=== PATIENT | female | born 1995 | race Caucasian/White ===

== ENCOUNTER 2021-01-26 23:56 | Emergency (ER) | payer MEDICAID, SELFPAY ==
[2021-01-26 23:58] VITALS: BP 142/84; PULSE 85; RESP 16; TEMP 36.5; O2SAT 99; BMI 34.1
--- NOTE | 2021-01-27 00:05 | ED.VISSUMM ---
- ER Visit Summary Date of Service: 01/27/21 Chief Complaint: Nausea, tired History of Present Illness: The patient is a 25 F who states she has nausea and feels tired. She states that she drank a weight loss drink earlier today and since then she has not felt well. She has had nausea without vomiting. She denies any abdominal pain. She noticed tonight that both of her eyes were puffy. She denies any pain or vision changes. She has had a decreased appetite and she feels tired. She denies any fevers or any other coronavirus-like symptoms. Denies any chance of . Denies any urinary symptoms. Physical Examination: Vital signs reviewed. HEENT exam unremarkable. Heart is regular rate and rhythm without murmurs. Lungs are clear to auscultation. Abdomen is soft and nontender. Extremities reveal no edema. Skin exam normal. Neurologic exam normal. Test Results: White blood cell count is 15.5, potassium is 3.4, creatinine 1.19. is negative. Emergency Department Course and Treatment: Patient was given saline and Zofran. Upon reevaluation she is symptomatically improved. Her symptoms are likely due to this diet drink that she ingested earlier. I recommended that she not drink this anymore. She will be given Phenergan to take for nausea at home. She will follow-up with her PCP. Treatment Plan: [] Disposition: Discharge Impression: Nausea This note was generated with [employer] dictation software. It may contain incorrect words, spelling, and punctuation that were not noted in review of the chart prior to signing ED Disposition - Plan for ED Patient: Disposition: Home or Assisted Living Instructions: ED Vomiting (Adult) Prescriptions: proMETHazine tablet [Phenergan] 25 mg PO Q6H PRN PRN #10 tab PRN Reason: Nausea Prescription Printed Referrals: Care Physician,No Primary [Primary Care Provider] -
[2021-01-27 00:16] VITALS: BP 142/84; PULSE 85; RESP 16; TEMP 36.5; O2SAT 99; BMI 34.1
[2021-01-27 00:23] LABS: Absolute Lymphocyte Count 5.56 X10^3/uL (0.83-4.51); Absolute Neutrophil Count 8.9 X10^3/uL (2.0-7.7); Basophil# 0.08 X10^3/uL; Basophil% 0.5 % (0-1); Eosinophil# 0.11 X10^3/uL; Eosinophils% 0.7 % (0-5); Hematocrit 43.5 % (37-47); Hemoglobin 13.9 g/dL (12.0-15.0); Lymphocyte # 5.56 X10^3/ul (0.83-4.51); Lymphocyte % 35.8 % (19-41); Mean Corpuscular Hgb 27.5 pg (27.0-32.0); Mean Corpuscular Volume 86.1 fL (81-99); Mean Platelet Vol. 9.4 fl (6.2-12.0); Monocyte# 0.85 X10^3/uL; Monocyte% 5.5 % (0-10); NRBC Flagged by Analyzer 0 % (0-5); Neutrophil # 8.87 X10^3/uL (2.7-7.7); Neutrophil % 57.2 % (47-70); POSITIVE DIFFERENTIAL YES; POSITIVE MORPHOLOGY YES; Platelet Count 346 K/mm3 (150-450); RBC Distribution Width CV 12.3 % (11.6-14.6); RBC Distribution Width SD 38.9 fl (35.1-43.9); Red Blood Count 5.05 M/mm3 (4.2-5.4); White Blood Count 15.5 K/mm3 (4.4-11.0)
[2021-01-27 00:28] LABS: Internal QC Validated? YES +Cl - CLEAR BKGD; Pregnancy, Urine Negative Negative
[2021-01-27] MEDS: Ondansetron 4 MG/2 ML Vial IV (00:36)
[2021-01-27] MEDS: 0.9% Normal Saline 1,000 ML 999 ML IV (00:36)
[2021-01-27 00:41] LABS: Differential Indicated SCAN CRITERIA MET
[2021-01-27 00:43] LABS: Anion Gap 5 (5-15); BUN 14 mg/dL (7-18); BUN/Creat Ratio 11.8 RATIO (10-20); Calcium,Total 9.9 mg/dL (8.5-10.1); Chloride 103 mmol/L (98-107); Creatinine, Serum 1.19 mg/dL (0.55-1.02); EST Glomerular Filtration Rate 58 mL/min (>60); Est Glom Filt Rate - Afr Amer 71 mL/min (>60); Estimated Creatinine Clearance 59.78 ml/min; Glucose 79 mg/dL (74-106); Potassium 3.4 mmol/L (3.5-5.1); Sodium Level 137 mmol/L (136-145)
== END 2021-01-27 01:33 | disposition home or self-care (01) ==
PROVIDERS: Emergency Provider Emergency Medicine
DX: R11.0 Nausea (principal); Z72.0 Tobacco use
CPT/HCPCS: 80048; 81025; 85025; 96361; 96374; 99282; J7030; A4216; J2405

== ENCOUNTER 2022-03-29 11:31 | Emergency (ER) | payer MEDICAID, SELFPAY ==
[2022-03-29 11:32] VITALS: BP 145/104; PULSE 56; RESP 16; TEMP 36.2; O2SAT 98; BMI 29.3
[2022-03-29] MEDS: Metoclopramide 10 MG/2 ML Vial IV (12:02)
[2022-03-29] MEDS: 0.9% Normal Saline 1,000 ML 1000 ML IV (12:02)
[2022-03-29] MEDS: Capsaicin 0.025% 1 APPLIC Tube TOPICAL (12:24)
[2022-03-29 12:38] LABS: Anion Gap 6 (5-15); BUN 22 mg/dL (7-18); BUN/Creat Ratio 21.6 RATIO (10-20); Calcium,Total 9.3 mg/dL (8.5-10.1); Chloride 110 mmol/L (98-107); Creatinine, Serum 1.02 mg/dL (0.55-1.02); EST Glomerular Filtration Rate 69 mL/min (>60); Est Glom Filt Rate - Afr Amer 84 mL/min (>60); Estimated Creatinine Clearance 69.14 ml/min; Glucose 108 mg/dL (74-106); Potassium 3.2 mmol/L (3.5-5.1); Sodium Level 140 mmol/L (136-145)
--- NOTE | 2022-03-29 12:48 | EX.ED.DYSGE1 ---
HPI History of Present Illness Chief Complaint: Nausea/Vomiting Detail of Chief Complaint: I feel terrible Informant: patient Onset/Context/Timing Onset: Days Context: Sudden Onset Timing: Continuous and Intermittent (Intermittent nausea and vomiting. Worse in the morning) Quality: Sense of unwellness, nausea and vomiting and mild orthostatic symptoms Location: Generalized and GI Current Severity: Moderate Maximum Severity: Severe Worsened by: Nothing per patient Relieved by: Nothing per patient Associated Symptoms Associated Symptoms: No fever, no neurologic or HEENT symptoms Narrative Narrative: Patient is a 26-year-old woman who states she was seen at [facility] on Friday. She states urine test was negative. Urine was positive for ketones. They placed on nitrofurantoin because there was concern for infection because she had ketones in her urine. She does admit to smoking daily. She also admits to smoking marijuana daily. She states she was told she would get better if she stop smoking for 2 days. Patient reports darker urine this morning and decreased urine output. She does report dry mouth and thirst. She does endorse orthostatic symptoms. She denies headache, visual, ocular auditory symptoms. She denies upper respiratory infectious symptoms. Prior similar symptoms: Yes Recent Illness/Hospitalization: Yes PFSH PFSH Medical History no medical history no medical history Home Medications promethazine 25 mg tablet 25 mg PO Q6H PRN PRN Nausea #10 TABLETS 01/27/21 [Rx Last Taken Unknown] Allergy/AdvReac Type Severity Reaction Status Date / Time ARITHROMYCIN Allergy Intermediate Hives Uncoded 03/29/22 11:34 Surgical History no surgical history no surgical history Social History (Updated 03/29/22 @ 12:[address] Remington Calhoun MD) household members: friend(s) Smoking Status: Current every day smoker tobacco type: cigarettes alcohol intake: current substance use type: marijuana ROS ROS ED Constitutional Constitutional ED: Denies chills, fever(s), subjective, sweats or weight loss Eyes Eyes: Denies blurry vision, change in vision or diplopia ENT ENT ED: Denies ear pain, rhinorrhea or sore throat Cardiovascular Cardiovascular: Denies chest pain, palpitations or racing heartbeat Respiratory/Chest Respiratory/Chest: Denies cough, dyspnea or dyspnea on exertion Gastrointestinal Gastrointestinal: Reports abdominal pain, nausea and vomiting; Denies constipation, diarrhea or melena Genitourinary Genitourinary ED: Denies dysuria, hematuria or urinary frequency Musculoskeletal Musculoskeletal: Denies arthralgias, back pain, myalgias or neck pain Integumentary Denies abscess, Abrasions or rash Neurologic Neurologic: Denies headache(s), paresthesias or weakness Endocrine Endocrinology: Denies cold intolerance, heat intolerance or polydipsia Allergic/Immunologic Allergic/Immunologic ED: Denies mouth swelling, tongue swelling or urticaria EXAM Physical Exam Narrative Exam Narrative: Patient does not look well. She is not toxic in appearance. Const Vital Signs: 03/29/22 11:32 03/29/22 13:11 Temperature 97.1 F L Temperature Source Temporal Pulse Rate 56 L 62 Respiratory Rate 16 18 Blood Pressure 145/104 H 130/72 H Blood Pressure Mean 117 91 Pulse Ox 98 97 Oxygen Delivery Method Room Air Room Air Positive well nourished and well developed General Appearance ED: well developed; Negative for cyanotic, diaphoretic, NAD or pallor HEENT Reports dry mucous membranes HEENT Narrative: Pertinent tissue. Uvula midline. No erythema or exudate of the posterior pharynx. Ears are normal. TMs are normal. Nares patent with no discharge. Mouth ED: Yes dry mucous membranes Mouth: dry mucous membranes Eyes PERRL and EOMs intact bilaterally General Eye ED: Negative for pale conjunctiva or scleral icterus Neck no lymphadenopathy, supple and no JVD Resp normal respiratory effort and clear to auscultation bilaterally Cardio regular rate, regular rhythm, S1 normal heart sound, S2 normal heart sound and no murmurs GI normal to inspection, nondistended, normoactive bowel sounds, non-tender, non-distended and no masses; Negative for hepatosplenomegaly Palpation: soft Back/Spine no CVA tenderness Thoracic Spine / Upper Back: Negative for thoracic spinal tenderness Lumbar Spine / Lower Back: Negative for lumbar spinal tenderness Extremity normal to inspection General Extremety ED: Negative for edema or tenderness General Extremity: Negative for edema Neuro oriented x3, CN's II-XII intact bilaterally and no sensory deficits noted Sensorium / Orientation: alert Motor Exam: strength 5/5 throughout Psych Psych Narrative: Affect flat mood depressed Skin General Skin Exam: Negative for jaundice or pallor Lesions: No lesion noted Rashes: No rashes noted Trauma: Negative for abrasion MDM MDM MDM Narrative Medical decision making narrative: Clinically patient looks dehydrated. She was informed since she is a daily marijuana user it may take up to 30 days for the hyperemesis due to cannabis to resolve. She was treated with A station ointment. She also received Reglan for nausea vomiting. Electrolytes were obtained to assess renal function, CO2 anion gap and electrolytes. Lab Data Attestation: I reviewed the patient's lab results. Lab results narrative: Patient has mild hypokalemia. Chloride is elevated. Labs: Laboratory Results - last 24 hr 03/29/22 11:48 Sodium 140 Potassium 3.2 L Chloride 110 H Carbon Dioxide 24.0 Anion Gap 6 BUN 22 H Creatinine 1.02 Estim Creat Clear Calc 69.14 Est GFR (MDRD) Af Amer 84 Est GFR (MDRD) Non-Af 69 BUN/Creatinine Ratio 21.6 H Glucose 108 H Calcium 9.3 Rhythm Strip Rhythm Strip: Sinus Rhythm Rate: 61 Ectopy: None Treatment and Re-Evaluation Narrative: Patient was reassessed at 10/08/2006. She has not vomited since she arrived. She her nausea has improved. She still feels nauseous. 25 mg of Benadryl and 2 mg of Haldol was ordered and will reassess in 30 to 60 minutes. Patient was reassessed at 1455. She reports resolution of her nausea and vomiting and feeling terrible . Patient was given the capsaicin ointment to go home with. She was informed that the marijuana will not be out of her system for approximately 30 days. Discharge Plan Triage Chief Complaint: Nausea/Vomiting ED Provider: Remington Calhoun Dx/Rx/DC Orders Clinical Impression: Cannabis hyperemesis syndrome concurrent with and due to cannabis abuse, Moderate dehydration, Acute hypokalemia Instructions: Cannabinoid Hyperemesis Syndrome, ED Hypokalemia, ED Marijuana Abuse Prescriptions: No Action promethazine 25 MG tablet 25 mg PO Q6H PRN PRN (Reason: Nausea) Qty: 10 0RF Primary Care Provider: Care Physician,No Primary Referrals: Care Physician,No Primary [Primary Care Provider] - Doctor,Your [STAFF PHYSICIAN] - As Needed Disposition Disposition: Home, Self Care
[2022-03-29 13:11] VITALS: BP 130/72; PULSE 62; RESP 18; O2SAT 97
[2022-03-29] MEDS: DiphenhydrAMINE 50 MG/ML Syringe 25 MG IV (13:19)
[2022-03-29] MEDS: Haloperidol Lactate 5 MG/ML Vial 2 MG IV (13:20)
--- NOTE | 2022-03-29 15:36 | CM.ED ---
SW Note Referral Source: Case Find Referral Reason: No Primary Care Physician (PCP) SW reviewed chart and noted that patient has no PCP. SW provided patient with list of [facility] and [facility] Physician List for reference. SW also provided patient with handout ?Where to go When?. No other issues or concerns voiced at this time. SW remains available for any additional needs. Plan: Provided patient with PCP information Erika GOMEZ
[2022-03-29 15:56] VITALS: BP 149/84; PULSE 60; RESP 18; O2SAT 98
== END 2022-03-29 16:01 | disposition home or self-care (01) ==
PROVIDERS: Emergency Provider Emergency Medicine; Visit Provider Emergency Medicine
DX: F12.188 Cannabis abuse with other cannabis-induced disorder (principal); R11.2 Nausea with vomiting, unspecified; R10.9 Unspecified abdominal pain; E86.0 Dehydration; E87.6 Hypokalemia; F17.210 Nicotine dependence, cigarettes, uncomplicated
CPT/HCPCS: 80048; 96361; 96374; 96375; 99283; J7030; A4216

== ENCOUNTER 2022-04-28 17:30 | Emergency (ER) | payer MEDICAID, SELFPAY ==
[2022-04-28 17:30] VITALS: BP 123/72; PULSE 73; RESP 15; TEMP 36.4; O2SAT 98; BMI 29.2
--- NOTE | 2022-04-28 17:46 | EDS_ITS ---
HPI HPI - Female History of Present Illness Chief Complaint: Complaint Detail of Chief Complaint: Dysuria and possible STD Informant: patient Narrative Narrative: Patient presents the emergency department concerned she might have an STD. Patient states that her partner was tested recently because he had some drainage from his penis and was started on antibiotics but the results of the STD check were unavailable yet. Patient denies vaginal discharge. She has had some vaginal bleeding and spotting and she is on Nexplanon. She does not think she is . Patient's had some mild dysuria and some mild pain in her back. She denies fevers. PFSH PFSH Medical History no medical history Home Medications NK 04/28/22 [History Last Taken Unknown] Allergy/AdvReac Type Severity Reaction Status Date / Time erythromycin base Allergy Hives Verified 04/28/22 17:34 Family History no significant family his Surgical History no surgical history Social History (Updated 03/29/22 @ 12:[address] Remington Calhoun MD) household members: friend(s) Smoking Status: Current every day smoker tobacco type: cigarettes alcohol intake: current substance use type: marijuana ROS ROS ED Review of Systems ROS Unobtainable: other Constitutional Constitutional ED: Reports lethargy; Denies chills, fever(s), sweats or weight loss Eyes Eyes: Denies blurry vision, change in vision or diplopia ENT ENT ED: Denies rhinorrhea or sore throat Cardiovascular Cardiovascular: Reports chest pain and racing heartbeat; Denies orthopnea Respiratory/Chest Respiratory/Chest: Reports dyspnea and dyspnea on exertion; Denies cough, orthopnea or sputum Gastrointestinal Gastrointestinal: Denies abdominal pain, diarrhea, nausea or vomiting Genitourinary Genitourinary ED: Reports dysuria and other Details: Vaginal bleeding ; Denies hematuria or urinary frequency Musculoskeletal Musculoskeletal: Denies arthralgias, back pain, myalgias or neck pain Integumentary Denies abscess, Abrasions or rash Neurologic Neurologic: Denies headache(s) or weakness Psychiatric Psychiatric: Denies anxiety, depression or suicidal thoughts Endocrine Endocrinology: Denies polydipsia, polyphagia or polyuria Hematologic/Lymphatic Hematologic/Lymphatic: Denies easy bleeding, easy bruising or lymphadenopathy Allergic/Immunologic Allergic/Immunologic ED: Denies mouth swelling, tongue swelling or urticaria EXAM Physical Exam Const Vital Signs: 04/28/22 17:30 Temperature 97.5 F L Temperature Source Temporal Pulse Rate 73 Respiratory Rate 15 Blood Pressure 123/72 H Blood Pressure Mean 89 Pulse Ox 98 Oxygen Delivery Method Room Air Positive well nourished and well developed General Appearance ED: well developed and NAD HEENT Reports TM's clear and moist mucous membranes normocephalic and atraumatic; Negative for trauma or tenderness Tympanic Membrane ED: Yes TM's clear Eyes PERRL and EOMs intact bilaterally General Eye ED: Negative for pale conjunctiva or scleral icterus Neck no lymphadenopathy, supple and no JVD General: Negative for tenderness Chest Wall inspection of chest normal and palpation of chest normal Chest: Negative for tenderness Resp normal respiratory effort and clear to auscultation bilaterally Effort and Inspection: Negative for respiratory distress or pain with movement Auscultation: Negative for rhonchi, wheezes or diminished lung sounds Cardio regular rate, regular rhythm, S1 normal heart sound, S2 normal heart sound and no murmurs Peripheral Pulses: pulses 2+ throughout GI normal to inspection, nondistended, normoactive bowel sounds, soft to palpation, non-tender, non-distended and no masses Back/Spine no CVA tenderness and no thoracic nor lumbar tenderness Extremity normal to inspection General Extremety ED: Negative for edema General Extremity: Negative for edema Neuro oriented x3, CN's II-XII intact bilaterally, no sensory deficits noted and gait normal Sensorium / Orientation: awake, alert, oriented to person, oriented to place and oriented to time Motor Exam: strength 5/5 throughout and strength abnormal Psych mental status grossly normal Skin no rashes or lesions noted and no wounds MDM MDM MDM Narrative Medical decision making narrative: Patient had urinalysis obtained and was unremarkable. hCG urine was also negative. Patient will be treated with Rocephin to 50 mg IM and Zithromax 1 g p.o. GC and Chlamydia test results are pending. Patient advised to follow-up with primary care physician in 3 to 5 days. Lab Data Attestation: I reviewed the patient's lab results. Labs: Laboratory Results - last 24 hr 04/28/22 17:30 Urine Color Yellow Urine Clarity Clear Urine pH 7.0 Ur Specific [place] 1.010 Urine Protein Negative Urine Glucose (UA) Normal Urine Ketones Negative Urine Occult Blood 25 H Urine Nitrite Negative Urine Bilirubin Negative Urine Urobilinogen Normal Ur Leukocyte Esterase Negative Urine RBC 0-5 SEEN Urine WBC 0-5 SEEN Ur Squamous Epith Cells 5-10 SEEN Urine Bacteria 1+ Urine Mucus RARE Urine Test Negative Discharge Plan Triage Chief Complaint: Complaint ED Provider: Becky Ann Dx/Rx/DC Orders Clinical Impression: Urethritis Instructions: ED Urethritis Infec Vs Inflam ... Prescriptions: No Action NK Primary Care Provider: Antony Trevino Referrals: Care Physician,No Primary [NON-STAFF] - 3-5 Days Disposition Disposition: Home, Self Care
[2022-04-28 17:52] LABS: Internal QC Validated? YES +Cl - CLEAR BKGD
[2022-04-28 17:53] LABS: Color, Urine Yellow (Yellow); Glucose, Dipstick Normal (Normal); Ketone-Dipstick Negative (Negative); Leukocyte Esterase-Dipstick Negative /ul (Negative); Nitrite-Dipstick Negative (Negative); Occult Blood-Urine 25 /ul (Negative); Protein-Dipstick Negative (Negative); Urine Bilirubin Dipstick Negative (Negative); Urine Clarity Clear (Clear); Urine Urobilinogen Normal (Normal)
[2022-04-28 17:57] LABS: Pregnancy, Urine Negative Negative
[2022-04-28 18:05] LABS: Bacteria 1+ /hpf (None Seen); Mucous, Urine RARE /hpf (<or=2+); Red Blood Cells-Urine 0-5 SEEN /hpf (0-5); Squamous Epithelial Cells - UA 5-10 SEEN /hpf (5-10); White Blood Cells 0-5 SEEN /hpf (0-5)
[2022-04-28 18:26] VITALS: RESP 16
[2022-04-28] MEDS: Azithromycin 250 MG Tablet 1000 MG PO (19:04)
[2022-04-28] MEDS: Ceftriaxone 500 MG Vial 250 MG IM (19:04)
[2022-04-28 20:23] LABS: Chlamydia Trachomatis by PCR Negative (Negative); Neisserai gonorrhoeae by PCR Negative (Negative); Probe Check PASS; Sample Adequacy Control PASS; Specimen Processing Control PASS
== END 2022-04-28 19:10 | disposition home or self-care (01) ==
PROVIDERS: Emergency Provider Emergency Medicine; PCP Family Medicine; Visit Provider Emergency Medicine
DX: N34.2 Other urethritis (principal); M54.9 Dorsalgia, unspecified; Z11.3 Encounter for screening for infections with a predominantly sexual mode of transmission; N93.9 Abnormal uterine and vaginal bleeding, unspecified; N92.0 Excessive and frequent menstruation with regular cycle; F17.210 Nicotine dependence, cigarettes, uncomplicated
CPT/HCPCS: 81001; 81025; 87491; 87591; 96372; 99282

== ENCOUNTER 2022-05-12 16:03 | Emergency (ER) | payer MEDICAID, SELFPAY ==
[2022-05-12 16:04] VITALS: BP 144/112; PULSE 47; RESP 18; TEMP 35.9; O2SAT 99; BMI 27.4
[2022-05-12 16:10] VITALS: BP 144/112; PULSE 47; RESP 18; TEMP 35.9; O2SAT 99
--- NOTE | 2022-05-12 16:17 | CT_ITS ---
STUDY: CT Abdomen And Pelvis W/ Contrast Injection 05/12/2022 6:11 PM REASON FOR EXAM: Female, 26 years old. ABDOMINAL PAIN abdominal pain TECHNIQUE: Transaxial images were obtained without oral contrast, and with IV 100mL Isovue-370 intravenous contrast. Individualized dose optimization techniques were used for this CT. COMPARISON: None. FINDINGS: The visualized lung bases are unremarkable. The visualized portions of the heart are within normal limits. There is periportal edema noted. Unremarkable gallbladder and extrahepatic biliary system. Unremarkable spleen. Unremarkable pancreas. Unremarkable bilateral adrenal glands. No acute findings of the right kidney. No acute findings of the left kidney. Unremarkable visualized stomach. Unremarkable small intestine. Unremarkable colon. There are surgical clips in the region of the appendix consistent with a prior appendectomy. There are no acute findings of the abdominal aorta. Unremarkable inferior vena cava. Subcentimeter mesenteric lymph nodes. Unremarkable urinary bladder. There are physiologic follicles of both ovaries. There is an umbilical hernia containing fat. Unremarkable osseous structures. CT/Abdomen/Pelvis W IV Cont ONLY IMPRESSION: (NOT LISTED IN ORDER OF SIGNIFICANCE) There are no acute findings. Other findings as above. Electronically Signed: Ilan Camacho MD at 18:23 EDT ,
--- NOTE | 2022-05-12 16:23 | ED.VIS.GI ---
HPI HPI - GI History of Present Illness Chief Complaint: Abd Pain Detail of Chief Complaint: Abdominal pain Informant: patient Narrative Narrative: Patient presents to the emergency department complaint of abdominal pain since this morning. Patient states she woke up nauseated and then started vomiting. She has vomited multiple times. Patient denies diarrhea. She denies fever. She describes the pain as sharp stabbing in the epigastric and mid abdomen region. She denies fevers. She denies blood in her stool or black tarry stool. Patient states she has had similar pain about a month and a half ago and no etiology for was found. Prior similar symptoms: Yes PFSH PFSH Medical History no medical history Home Medications dicyclomine 10 mg capsule 20 mg PO TIDAC #20 CAPSULES 05/12/22 [Rx Last Taken Unknown] famotidine 20 mg tablet 20 mg PO BID #28 TABLETS 05/12/22 [Rx Last Taken Unknown] ondansetron 4 mg disintegrating tablet 4 mg PO Q8H PRN PRN Nausea #10 tabs 05/12/22 [Rx Last Taken Unknown] oxycodone-acetaminophen 5 mg-325 mg tablet 1 tab PO Q6H PRN PRN Pain 3 days #12 TABLETS 05/12/22 [Rx Last Taken Unknown] Allergy/AdvReac Type Severity Reaction Status Date / Time erythromycin base Allergy Hives Verified 05/12/22 16:03 Surgical History History of appendectomy Social History (Updated 03/29/22 @ 12:[address] Remington Calhoun MD) household members: friend(s) Smoking Status: Current every day smoker tobacco type: cigarettes alcohol intake: current substance use type: marijuana ROS ROS ED Review of Systems ROS Unobtainable: other Constitutional Constitutional ED: Reports lethargy; Denies chills, fever(s), sweats or weight loss Eyes Eyes: Denies blurry vision, change in vision or diplopia ENT ENT ED: Denies rhinorrhea or sore throat Cardiovascular Cardiovascular: Denies chest pain, orthopnea or racing heartbeat Respiratory/Chest Respiratory/Chest: Reports dyspnea and dyspnea on exertion; Denies cough, orthopnea or sputum Gastrointestinal Gastrointestinal: Reports abdominal pain, nausea and vomiting; Denies diarrhea Genitourinary Genitourinary ED: Denies dysuria, hematuria or urinary frequency Musculoskeletal Musculoskeletal: Denies arthralgias, back pain, myalgias or neck pain Integumentary Denies abscess, Abrasions or rash Neurologic Neurologic: Denies headache(s) or weakness Psychiatric Psychiatric: Denies anxiety, depression or suicidal thoughts Endocrine Endocrinology: Denies polydipsia, polyphagia or polyuria Hematologic/Lymphatic Hematologic/Lymphatic: Denies easy bleeding, easy bruising or lymphadenopathy Allergic/Immunologic Allergic/Immunologic ED: Denies mouth swelling, tongue swelling or urticaria EXAM Physical Exam Const Vital Signs: 05/12/22 16:04 05/12/22 16:10 05/12/22 18:10 Temperature 96.6 F L 96.6 F L Temperature Source Temporal Temporal Pulse Rate 47 L 47 L 67 Respiratory Rate 18 18 18 Blood Pressure 144/112 H 144/112 H 139/87 H Blood Pressure Mean 122 104 Pulse Ox 99 99 97 Oxygen Delivery Method Room Air Room Air Room Air Positive well nourished and well developed General Appearance ED: well developed and NAD HEENT Reports TM's clear and moist mucous membranes normocephalic and atraumatic; Negative for trauma or tenderness Tympanic Membrane ED: Yes TM's clear Eyes PERRL and EOMs intact bilaterally General Eye ED: Negative for pale conjunctiva or scleral icterus Neck no lymphadenopathy, supple and no JVD General: Negative for tenderness Chest Wall inspection of chest normal and palpation of chest normal Chest: Negative for tenderness Resp normal respiratory effort and clear to auscultation bilaterally Effort and Inspection: Negative for respiratory distress or pain with movement Auscultation: Negative for rhonchi, wheezes or diminished lung sounds Cardio regular rate, regular rhythm, S1 normal heart sound, S2 normal heart sound and no murmurs Peripheral Pulses: pulses 2+ throughout GI soft to palpation, non-distended and no masses GI Narrative: Patient with tenderness palpation over the epigastric and mid abdomen region. There is mild guarding. There is no rebound, rigidity, or peritoneal signs. Negative Fish sign. No tenderness to the lower abdomen. Back/Spine no CVA tenderness and no thoracic nor lumbar tenderness Extremity normal to inspection General Extremety ED: Negative for edema General Extremity: Negative for edema Neuro oriented x3, CN's II-XII intact bilaterally, no sensory deficits noted and gait normal Sensorium / Orientation: awake, alert, oriented to person, oriented to place and oriented to time Motor Exam: strength 5/5 throughout and strength abnormal Psych mental status grossly normal Skin no rashes or lesions noted and no wounds MDM MDM MDM Narrative Medical decision making narrative: IV line established. Patient is medicated with Zofran and morphine. She had good pain relief. She was given a second dose of Zofran for some ongoing nausea. At this point etiology of her abdominal pain is unclear as her lab work was unremarkable her lactate was normal and her CT scan of the abdomen pelvis was unremarkable. Patient will be discharged to home with a prescription for Zofran as well as Bentyl. She is advised to return if worsening pain, fever, vomiting, or condition worsen anyway. Lab Data Attestation: I reviewed the patient's lab results. Labs: Laboratory Results - last 24 hr 05/12/22 05/12/22 05/12/22 16:30 16:30 16:30 WBC 9.5 RBC 4.61 Hgb 12.8 Hct 38.7 MCV 83.9 MCH 27.8 MCHC 33.1 RDW Std Deviation 37.6 RDW Coeff of Marcel 12.6 Plt Count 304 MPV 9.6 Immature Gran % (Auto) 0.300 Neut % (Auto) 79.5 H Lymph % (Auto) 16.8 L [place] % (Auto) 2.7 Eos % (Auto) 0.1 Baso % (Auto) 0.6 Absolute Neuts (auto) 7.6 Absolute Lymphs (auto) 1.60 Nucleated RBC % 0 Sodium 137 Potassium 3.4 L Chloride 107 Carbon Dioxide 21.0 Anion Gap 9 BUN 14 Creatinine 0.75 Estim Creat Clear Calc 94.03 Est GFR (MDRD) Af Amer 119 Est GFR (MDRD) Non-Af 99 BUN/Creatinine Ratio 18.7 Glucose 101 Lactic Acid 1.0 Calcium 9.3 Total Bilirubin 0.60 AST 17 ALT 17 Alkaline Phosphatase 66 Total Protein 7.6 Albumin 4.1 Globulin 3.5 Albumin/Globulin Ratio 1.2 Lipase 33 L Serum , Qual 05/12/22 16:30 WBC RBC Hgb Hct MCV MCH MCHC RDW Std Deviation RDW Coeff of Marcel Plt Count MPV Immature Gran % (Auto) Neut % (Auto) Lymph % (Auto) [place] % (Auto) Eos % (Auto) Baso % (Auto) Absolute Neuts (auto) Absolute Lymphs (auto) Nucleated RBC % Sodium Potassium Chloride Carbon Dioxide Anion Gap BUN Creatinine Estim Creat Clear Calc Est GFR (MDRD) Af Amer Est GFR (MDRD) Non-Af BUN/Creatinine Ratio Glucose Lactic Acid Calcium Total Bilirubin AST ALT Alkaline Phosphatase Total Protein Albumin Globulin Albumin/Globulin Ratio Lipase Serum , Qual NEGATIVE Radiography Diagnostic Testing: Clinical Impression(s) from Imaging Studies Abdomen/Pelvis CT 05/12/22 16:17 IMPRESSION: (NOT LISTED IN ORDER OF SIGNIFICANCE) There are no acute findings. Other findings as above. Electronically Signed: Ilan Camacho MD at 18:23 EDT , Discharge Plan Triage Chief Complaint: Abd Pain ED Provider: Becky Ann Dx/Rx/DC Orders Clinical Impression: Abdominal pain, Vomiting Instructions: ED Abdominal Pain Unkn Cause Fem Prescriptions: New oxycodone-acetaminophen [oxycodone-acetaminophen] 5-325 mg tablet 1 tab PO Q6H PRN PRN (Reason: Pain) 3 Days Qty: 12 0RF famotidine [famotidine] 20 mg tablet 20 mg PO BID Qty: 28 0RF dicyclomine 10 mg capsule 20 mg PO TIDAC Qty: 20 0RF ondansetron [ondansetron] 4 mg tablet,disintegrating 4 mg PO Q8H PRN PRN (Reason: Nausea) Qty: 10 0RF Primary Care Provider: Antony Trevino Referrals: Antony Trevino [Primary Care Provider] - 3-5 Days Disposition Disposition: Home, Self Care
[2022-05-12 16:41] LABS: Absolute Neutrophil Count 7.6 X10^3/uL (2.0-7.7); Basophil# 0.06 X10^3/uL; Basophil% 0.6 % (0-1); Eosinophil# 0.01 X10^3/uL; Eosinophils% 0.1 % (0-5); Hematocrit 38.7 % (37-47); Hemoglobin 12.8 g/dL (12.0-15.0); Lymphocyte % 16.8 % (19-41); Mean Corp Hgb Conc 33.1 g/dL (32-36); Mean Corpuscular Hgb 27.8 pg (27.0-32.0); Mean Corpuscular Volume 83.9 fL (81-99); Mean Platelet Vol. 9.6 fl (6.2-12.0); Monocyte# 0.26 X10^3/uL; Monocyte% 2.7 % (0-10); NRBC Flagged by Analyzer 0 % (0-5); Neutrophil # 7.55 X10^3/uL (2.7-7.7); Neutrophil % 79.5 % (47-70); Platelet Count 304 K/mm3 (150-450); RBC Distribution Width CV 12.6 % (11.6-14.6); RBC Distribution Width SD 37.6 fl (35.1-43.9); Red Blood Count 4.61 M/mm3 (4.2-5.4); White Blood Count 9.5 K/mm3 (4.4-11.0)
[2022-05-12] MEDS: Ondansetron 4 MG/2 ML Vial IV ×2 (16:42→18:05)
[2022-05-12] MEDS: 0.9% Normal Saline 1,000 ML 125 ML IV (16:42)
[2022-05-12] MEDS: Morphine 4 MG/ML Syringe IV (16:42)
[2022-05-12 17:15] LABS: ALB/GLOB Ratio 1.2 RATIO (0.9-2.4); AST(SGOT) 17 U/L (15-37); Alanine Aminotransfer ALT/SGPT 17 U/L (13-56); Albumin, Serum 4.1 g/dL (3.2-5.0); Alkaline Phosphatase 66 U/L (45-117); Anion Gap 9 (5-15); BUN 14 mg/dL (7-18); BUN/Creat Ratio 18.7 RATIO (10-20); Calcium,Total 9.3 mg/dL (8.5-10.1); Chloride 107 mmol/L (98-107); Creatinine, Serum 0.75 mg/dL (0.55-1.02); EST Glomerular Filtration Rate 99 mL/min (>60); Est Glom Filt Rate - Afr Amer 119 mL/min (>60); Estimated Creatinine Clearance 94.03 ml/min; Globulin 3.5 g/dL (2.2-4.2); Glucose 101 mg/dL (74-106); Lipase 33 U/L (73-393); Potassium 3.4 mmol/L (3.5-5.1); Protein, Total 7.6 g/dL (6.4-8.2); Sodium Level 137 mmol/L (136-145)
[2022-05-12 17:31] LABS: Internal QC Validated? YES +Cl - CLEAR BKGD; Pregnancy, Serum, hCG Quali. NEGATIVE Negative
[2022-05-12 18:10] VITALS: BP 139/87; PULSE 67; RESP 18; O2SAT 97
[2022-05-12 18:37] VITALS: BP 124/80; PULSE 58; RESP 16; O2SAT 98
--- NOTE | 2022-05-13 13:53 | ED.RN ---
PT CALLS IN TO SAY THAT HER PRESCRIPTION FOR OXYCODONE DID NOT GO THROUGH. AFTER LOOKING AT HER D/C INFO AND CALLING [employer], THE TRANSMISSION STATUS STATES PENDING FOR OXYCODONE. THIS RN SPOKE WITH DR. FITCH THE PRESCRIBING DOC IS NOT ON STAFF TODAY. SHE STATES SHE WILL RESEND THE PRESCRIPTION ELECTRONICALLY. THIS RN LEFT A VM AT THE CELL PHONE NUMBER LISTED ON ACCOUNT.
== END 2022-05-12 18:50 | disposition home or self-care (01) ==
PROVIDERS: Emergency Provider Emergency Medicine; PCP Family Medicine; Visit Provider Emergency Medicine
DX: R10.9 Unspecified abdominal pain (principal); R11.2 Nausea with vomiting, unspecified; F17.210 Nicotine dependence, cigarettes, uncomplicated
CPT/HCPCS: 74177; 80053; 83605; 83690; 84703; 85025; 96361; 96374; 96375; 96376; 99283; Q9967; J2405

== ENCOUNTER 2022-05-14 12:07 | Emergency (ER) | payer MEDICAID, SELFPAY ==
[2022-05-14 12:08] VITALS: BP 146/98; PULSE 57; RESP 18; TEMP 36.4; O2SAT 98; BMI 27.6
[2022-05-14 12:44] LABS: Bacteria 0 SEEN /hpf (None Seen)
[2022-05-14 12:47] LABS: Absolute Lymphocyte Count 2.52 X10^3/uL (0.83-4.51); Absolute Neutrophil Count 8.9 X10^3/uL (2.0-7.7); Basophil# 0.07 X10^3/uL; Basophil% 0.6 % (0-1); Eosinophil# 0.07 X10^3/uL; Eosinophils% 0.6 % (0-5); Hematocrit 42.7 % (37-47); Hemoglobin 14.1 g/dL (12.0-15.0); Lymphocyte # 2.52 X10^3/ul (0.83-4.51); Lymphocyte % 20.6 % (19-41); Mean Corpuscular Hgb 27.8 pg (27.0-32.0); Mean Corpuscular Volume 84.2 fL (81-99); Mean Platelet Vol. 9.7 fl (6.2-12.0); Monocyte# 0.61 X10^3/uL; NRBC Flagged by Analyzer 0 % (0-5); Neutrophil # 8.92 X10^3/uL (2.7-7.7); Neutrophil % 72.7 % (47-70); Platelet Count 354 K/mm3 (150-450); RBC Distribution Width CV 12.8 % (11.6-14.6); RBC Distribution Width SD 39.4 fl (35.1-43.9); Red Blood Count 5.07 M/mm3 (4.2-5.4); White Blood Count 12.3 K/mm3 (4.4-11.0)
[2022-05-14 12:51] LABS: Color, Urine Amber (Yellow); Glucose, Dipstick Normal (Normal); Ketone-Dipstick 50 mg/dl (Negative); Leukocyte Esterase-Dipstick 25 /ul (Negative); Nitrite-Dipstick Negative (Negative); Occult Blood-Urine 250 /ul (Negative); Protein-Dipstick 30 mg/dl (Negative); Specific Gravity, Urine 1.025 (1.002-1.030); Urine Clarity Cloudy (Clear); Urine Urobilinogen 1 mg/dl (Normal)
[2022-05-14 12:57] LABS: Internal QC Validated? YES +Cl - CLEAR BKGD; Pregnancy, Serum, hCG Quali. NEGATIVE Negative
[2022-05-14 13:02] LABS: Urine Bilirubin Dipstick 1 mg/dL (Negative)
[2022-05-14 13:04] LABS: Anion Gap 8 (5-15); BUN 23 mg/dL (7-18); BUN/Creat Ratio 25.3 RATIO (10-20); Calcium,Total 9.1 mg/dL (8.5-10.1); Chloride 105 mmol/L (98-107); Creatinine, Serum 0.91 mg/dL (0.55-1.02); EST Glomerular Filtration Rate 79 mL/min (>60); Est Glom Filt Rate - Afr Amer 95 mL/min (>60); Glucose 94 mg/dL (74-106); Potassium 3.4 mmol/L (3.5-5.1); Sodium Level 136 mmol/L (136-145)
[2022-05-14 13:06] LABS: Squamous Epithelial Cells - UA 10-25 SEEN /hpf (5-10)
[2022-05-14 13:07] LABS: Red Blood Cells-Urine 0-5 SEEN /hpf (0-5); White Blood Cells 0-5 SEEN /hpf (0-5)
[2022-05-14 13:09] LABS: Mucous, Urine 3+ /hpf (<or=2+)
[2022-05-14 13:41] VITALS: BP 151/89; PULSE 46; RESP 20; O2SAT 94
[2022-05-14] MEDS: Ondansetron 4 MG/2 ML Vial IV (14:17)
[2022-05-14 14:38] LABS: AST(SGOT) 19 U/L (15-37); Alanine Aminotransfer ALT/SGPT 24 U/L (13-56); Albumin, Serum 4.3 g/dL (3.2-5.0); Alkaline Phosphatase 69 U/L (45-117); Bilirubin, Direct 0.12 mg/dL (0.00-0.30); Globulin 3.8 g/dL (2.2-4.2); Lipase 61 U/L (73-393); Protein, Total 8.1 g/dL (6.4-8.2)
[2022-05-14 15:17] VITALS: BP 135/78; PULSE 88; RESP 16; O2SAT 99
--- NOTE | 2022-05-14 15:43 | ED.VIS.GI ---
HPI HPI - GI History of Present Illness Chief Complaint: Abd Pain Informant: patient Abdominal Pain/Flank Pain Onset: Days (3) Context: Gradual Onset Timing: Continuous Quality: Cramping and Dull Location: Diffuse Worsened by: Nothing Relieved by: Nothing Nausea/Vomiting/Emesis GI Symptom: Positive for Nausea and Vomiting Quality: Positive for Nonbilious; Negative for Blood streaks, Coffee ground or Hematemesis Diarrhea/Melena/Hematochezia GI Symptom: Negative for Diarrhea, Melena or Hematochezia Associated Symptoms Associated Symptoms: Negative for Dysuria, Frequency or Hematuria LMP: Current Narrative Narrative: Patient presents with abdominal pain, nausea, and vomiting that has been constant for the past 3 days. Patient states she was seen here and had labs and CT scan done at that time. Patient states these were all normal. Patient was given prescription for nausea medicine and pain medicine. Patient states the nausea medicine has not been working. Patient states that she is vomiting up stomach contents. Patient denies any hematemesis or coffee-ground emesis. Patient denies any diarrhea, melena, or hematochezia. Patient denies any urinary complaints. Patient states she is currently on her menstrual cycle. [facility] Medical History (Updated 05/14/22 @ 15:[address] Sebastián Dunn DO) Ovarian cyst Home Medications dicyclomine 10 mg capsule 20 mg PO TIDAC #20 CAPSULES 05/12/22 [Rx Last Taken Unknown] famotidine 20 mg tablet 20 mg PO BID #28 TABLETS 05/12/22 [Rx Last Taken Unknown] promethazine 25 mg rectal suppository (Promethegan) 25 mg RECTAL Q6H PRN PRN Nausea ##6 05/14/22 [Rx Last Taken Unknown] Allergy/AdvReac Type Severity Reaction Status Date / Time erythromycin base Allergy Hives Verified 05/14/22 12:09 Surgical History History of appendectomy Social History household members: friend(s) Smoking Status: Current every day smoker tobacco type: cigarettes alcohol intake: current substance use type: marijuana ROS ROS ED Constitutional Constitutional ED: Denies chills or fever(s) Eyes Eyes: Denies blurry vision or change in vision ENT ENT ED: Denies rhinorrhea or sore throat Cardiovascular Cardiovascular: Denies chest pain or palpitations Respiratory/Chest Respiratory/Chest: Denies cough or dyspnea Gastrointestinal Gastrointestinal: Reports abdominal pain, nausea and vomiting; Denies melena Genitourinary Genitourinary ED: Denies dysuria or hematuria Musculoskeletal Musculoskeletal: Denies back pain or neck pain Integumentary Denies abscess or rash Neurologic Neurologic: Denies headache(s) or weakness Allergic/Immunologic Allergic/Immunologic ED: Denies mouth swelling or urticaria EXAM Physical Exam Const Vital Signs: 05/14/22 12:08 05/14/22 13:41 05/14/22 15:17 Temperature 97.6 F L Temperature Source Temporal Pulse Rate 57 L 46 L 88 Respiratory Rate 18 20 H 16 Blood Pressure 146/98 H 151/89 H 135/78 H Blood Pressure Mean 114 109 97 Pulse Ox 98 94 99 Oxygen Delivery Method Room Air Room Air Positive well nourished and well developed General Appearance ED: well developed HEENT Reports moist mucous membranes Neck supple and no JVD Resp normal respiratory effort and clear to auscultation bilaterally Cardio regular rate, regular rhythm and no murmurs GI normal to inspection, nondistended, normoactive bowel sounds Auscultation: normoactive bowel sounds Palpation: soft and tender epigastric, LLQ, RLQ, LUQ, RUQ, periumbilical and suprapubic; Negative for guarding or rebound tenderness present Extremity normal to inspection General Extremety ED: Negative for edema or tenderness General Extremity: Negative for edema Neuro oriented x3, CN's II-XII intact bilaterally, moves all extremities and no sensory deficits noted Sensorium / Orientation: alert Motor Exam: strength 5/5 throughout Psych mental status grossly normal Skin no rashes or lesions noted MDM MDM MDM Narrative Medical decision making narrative: Patient was given IV fluids and Zofran here. CBC shows a slight leukocytosis of 12.3. Basic metabolic profile was within normal limits. Serum hCG was negative. Hepatic profile was obtained and was within normal limits. Lipase was normal. Urinalysis does not show any evidence of urinary tract infection or hematuria. Patient is feeling better on reevaluation. Patient was given a prescription for Phenergan suppositories. Patient was instructed to follow-up with her primary care physician in 5 to 7 days. Patient was instructed to start with a liquid diet and advance as tolerated. Patient understood and was agreeable with the plan. All questions were answered. Lab Data Attestation: I reviewed the patient's lab results. Labs: Laboratory Results - last 24 hr 05/14/22 05/14/22 05/14/22 12:34 12:34 12:34 WBC 12.3 H RBC 5.07 Hgb 14.1 Hct 42.7 MCV 84.2 MCH 27.8 MCHC 33.0 RDW Std Deviation 39.4 RDW Coeff of Marcel 12.8 Plt Count 354 MPV 9.7 Immature Gran % (Auto) 0.500 Neut % (Auto) 72.7 H Lymph % (Auto) 20.6 [place] % (Auto) 5.0 Eos % (Auto) 0.6 Baso % (Auto) 0.6 Absolute Neuts (auto) 8.9 H Absolute Lymphs (auto) 2.52 Nucleated RBC % 0 Sodium 136 Potassium 3.4 L Chloride 105 Carbon Dioxide 23.0 Anion Gap 8 BUN 23 H Creatinine 0.91 Estim Creat Clear Calc 77.50 Est GFR (MDRD) Af Amer 95 Est GFR (MDRD) Non-Af 79 BUN/Creatinine Ratio 25.3 H Glucose 94 Calcium 9.1 Total Bilirubin Direct Bilirubin AST ALT Alkaline Phosphatase Total Protein Albumin Globulin Lipase Serum , Qual NEGATIVE Urine Color Urine Clarity Urine pH Ur Specific [place] Urine Protein Urine Glucose (UA) Urine Ketones Urine Occult Blood Urine Nitrite Urine Bilirubin Urine Urobilinogen Ur Leukocyte Esterase Urine RBC Urine WBC Ur Squamous Epith Cells Urine Bacteria Urine Mucus 05/14/22 05/14/22 12:34 12:38 WBC RBC Hgb Hct MCV MCH MCHC RDW Std Deviation RDW Coeff of Marcel Plt Count MPV Immature Gran % (Auto) Neut % (Auto) Lymph % (Auto) [place] % (Auto) Eos % (Auto) Baso % (Auto) Absolute Neuts (auto) Absolute Lymphs (auto) Nucleated RBC % Sodium Potassium Chloride Carbon Dioxide Anion Gap BUN Creatinine Estim Creat Clear Calc Est GFR (MDRD) Af Amer Est GFR (MDRD) Non-Af BUN/Creatinine Ratio Glucose Calcium Total Bilirubin 0.50 Direct Bilirubin 0.12 AST 19 ALT 24 Alkaline Phosphatase 69 Total Protein 8.1 Albumin 4.3 Globulin 3.8 Lipase 61 L Serum , Qual Urine Color Angelica Urine Clarity Cloudy Urine pH 6.0 Ur Specific [place] 1.025 Urine Protein 30 H Urine Glucose (UA) Normal Urine Ketones 50 H Urine Occult Blood 250 H Urine Nitrite Negative Urine Bilirubin 1 H Urine Urobilinogen 1 H Ur Leukocyte Esterase 25 H Urine RBC 0-5 SEEN Urine WBC 0-5 SEEN Ur Squamous Epith Cells 10-25 SEEN Urine Bacteria 0 SEEN Urine Mucus 3+ Discharge Plan Triage Chief Complaint: Abd Pain ED Provider: Sebastián Dunn Dx/Rx/DC Orders Clinical Impression: Abdominal pain, Vomiting Instructions: ED Abdominal Pain Unkn Cause Fem, ED Vomiting (Adult) Prescriptions: New promethazine [Promethegan] 25 mg suppository 25 mg RECTAL Q6H PRN PRN (Reason: Nausea) Qty: 6 0RF No Action famotidine [famotidine] 20 mg tablet 20 mg PO BID Qty: 28 0RF dicyclomine 10 mg capsule 20 mg PO TIDAC Qty: 20 0RF Primary Care Provider: Antony Trevino Referrals: Antony Trevino [Primary Care Provider] - 5-7 Days Disposition Disposition: Home, Self Care
[2022-05-14 16:00] VITALS: BP 140/89; PULSE 48; RESP 18; O2SAT 98
== END 2022-05-14 16:09 | disposition home or self-care (01) ==
PROVIDERS: Emergency Provider Emergency Medicine; PCP Family Medicine; Visit Provider Emergency Medicine
DX: R10.9 Unspecified abdominal pain (principal); R11.2 Nausea with vomiting, unspecified; F17.210 Nicotine dependence, cigarettes, uncomplicated; Z79.899 Other long term (current) drug therapy
CPT/HCPCS: 80048; 80076; 81001; 83690; 84703; 85025; 96374; 99282; A4216; J2405

== ENCOUNTER 2023-06-24 12:26 | Emergency (ER) | payer OTHER, SELFPAY ==
[2023-06-24 12:27] VITALS: BP 133/89; PULSE 83; RESP 18; TEMP 36.2; O2SAT 97
--- NOTE | 2023-06-24 14:13 | CT_ITS ---
STUDY: CT ABDOMEN AND PELVIS WITH CONTRAST REASON FOR EXAM: Female, 28 years old. Abdominal pain. Nausea and vomiting. RADIATION DOSAGE (If Supplied By Facility): CTDIvol = ( 11.89 ) mGy, DLP = ( 480.93 ) mGycm TECHNIQUE: Transaxial images were obtained from the dome of the diaphragm to the symphysis pubis without oral contrast. IV 100mL Isovue-300 was administered. Sagittal and coronal images were reconstructed. Individualized dose optimization techniques were used for this CT. COMPARISON: Comparison is made with prior study May 12, 2022. FINDINGS: The visualized lung bases are unremarkable. The visualized portions of the heart are within normal limits. Normal liver. Normal gallbladder and extrahepatic biliary system. Normal spleen. Normal pancreas. Normal bilateral adrenal glands. Normal right kidney. Normal left kidney. There is a small hiatal hernia. Normal small intestine. Normal colon. There are surgical clips in the region of the appendix consistent with a prior appendectomy. Normal abdominal aorta. Normal inferior vena cava. Normal retroperitoneum. Normal urinary bladder. There is a 3.1 cm x 2.5 cm cyst in the right ovary. There is a 3.3 cm Bard 2.2 cm cyst in the left ovary. Normal abdominal wall. Normal osseous structures. CT/Abdomen/Pelvis W IV Cont ONLY IMPRESSION: Bilateral ovarian cysts. Status post appendectomy. Electronically Signed: Jose Nguyen MD at 15:28 EDT ,
[2023-06-24] MEDS: Morphine 4 MG/ML Syringe IV (14:18)
[2023-06-24] MEDS: Ondansetron 4 MG/2 ML Vial IV (14:18)
[2023-06-24] MEDS: 0.9% Normal Saline (1000mL) 1,000 ML 1000 ML IV (14:20)
[2023-06-24 14:28] LABS: Absolute Neutrophil Count 11.7 X10^3/uL (2.0-7.7); Basophil# 0.03 X10^3/uL; Basophil% 0.2 % (0-1); Eosinophil# 0.05 X10^3/uL; Eosinophils% 0.4 % (0-5); Hematocrit 37.5 % (37-47); Hemoglobin 12.5 g/dL (12.0-15.0); Lymphocyte % 8.1 % (19-41); Mean Corp Hgb Conc 33.3 g/dL (32-36); Mean Corpuscular Volume 83.9 fL (81-99); Mean Platelet Vol. 10.3 fl (6.2-12.0); Monocyte# 0.59 X10^3/uL; Monocyte% 4.4 % (0-10); NRBC Flagged by Analyzer 0 % (0-5); Neutrophil # 11.69 X10^3/uL (2.7-7.7); Neutrophil % 86.6 % (47-70); Platelet Count 259 K/mm3 (150-450); RBC Distribution Width CV 12.8 % (11.6-14.6); RBC Distribution Width SD 38.7 fl (35.1-43.9); Red Blood Count 4.47 M/mm3 (4.2-5.4); White Blood Count 13.5 K/mm3 (4.4-11.0)
[2023-06-24 14:36] LABS: Internal QC Validated? YES +Cl - CLEAR BKGD; Pregnancy, Serum, hCG Quali. NEGATIVE Negative
[2023-06-24 14:45] LABS: ALB/GLOB Ratio 1.2 RATIO (0.9-2.4); AST(SGOT) 13 U/L (15-37); Alanine Aminotransfer ALT/SGPT 20 U/L (13-56); Albumin, Serum 4.1 g/dL (3.2-5.0); Alkaline Phosphatase 49 U/L (45-117); Anion Gap 6 (5-15); BUN 23 mg/dL (7-18); BUN/Creat Ratio 29.3 RATIO (10-20); Calcium,Total 8.7 mg/dL (8.5-10.1); Chloride 110 mmol/L (98-107); Creatinine, Serum 0.79 mg/dL (0.55-1.02); EST Glomerular Filtration Rate 93 mL/min (>60); Est Glom Filt Rate - Afr Amer 112 mL/min (>60); Globulin 3.4 g/dL (2.2-4.2); Glucose 129 mg/dL (74-106); Lipase 211 U/L (13-75); Potassium 3.5 mmol/L (3.5-5.1); Protein, Total 7.5 g/dL (6.4-8.2); Sodium Level 139 mmol/L (136-145)
[2023-06-24 14:53] LABS: Bacteria 0 SEEN /hpf (None Seen); Mucous, Urine 0 SEEN /hpf (<or=2+); Squamous Epithelial Cells - UA 0 SEEN /hpf (5-10)
[2023-06-24 14:54] LABS: Color, Urine Yellow (Yellow); Glucose, Dipstick Normal (Normal); Ketone-Dipstick 150 mg/dl (Negative); Leukocyte Esterase-Dipstick Negative /ul (Negative); Nitrite-Dipstick Negative (Negative); Occult Blood-Urine Negative /ul (Negative); Protein-Dipstick Negative (Negative); Specific Gravity, Urine 1.015 (1.002-1.030); Urine Bilirubin Dipstick Negative (Negative); Urine Clarity Clear (Clear); Urine Urobilinogen Normal (Normal)
[2023-06-24 15:10] LABS: Red Blood Cells-Urine 0-5 SEEN /hpf (0-5); White Blood Cells 0-5 SEEN /hpf (0-5)
--- NOTE | 2023-06-24 15:30 | EDS_ITS ---
HPI <MARTINEZ Alarcon - Last Filed: 06/24/23 16:43> History of Present Illness Chief Complaint: Nausea/Vomiting Narrative Narrative: Patient is a 28-year-old female with history of cyclic vomiting syndrome who has been to the emergency department for the same. Patient states that she does see a GI specialist, they have her on doxycycline, Phenergan, Zofran. Patient states that she has not getting any relief. Patient states that since 4 AM, she is been having nonstop vomiting, significant abdominal pain. She denies any blood in her stool or vomit. Patient states she has no diarrhea just nausea and vomiting. Patient last CAT scan was here in May 2022. PFS <MARTINEZ Alarcon - Last Filed: 06/24/23 16:43> [facility] Medical History (Updated 06/24/23 @ 16:42 by MARTINEZ Alarcon) Ovarian cyst Home Medications dicyclomine 10 mg capsule 20 mg (2 x 10 mg) PO TIDAC #20 CAPSULES 05/12/22 [Rx Last Taken Unknown] famotidine 20 mg tablet 20 mg PO BID #28 TABLETS 05/12/22 [Rx Last Taken Unknown] promethazine 25 mg rectal suppository (Promethegan) 25 mg RECTAL Q6H PRN PRN Nausea ##6 05/14/22 [Rx Last Taken Unknown] Allergy/AdvReac Type Severity Reaction Status Date / Time erythromycin base Allergy Hives Verified 06/24/23 12:27 Surgical History History of appendectomy Social History household members: friend(s) Smoking Status: Current every day smoker tobacco type: cigarettes alcohol intake: current substance use type: marijuana ROS <MARTINEZ Alarcon - Last Filed: 06/24/23 16:43> ROS ED ROS Narrative Constitutional: Negative for fever, chills, weight loss, weakness Eyes: Negative for vision loss, vision change, double vision ENT: Negative for any sore throat, ear pain, congestion Cardiovascular: Negative for any chest pain, tightness, palpitations Respiratory: Negative for any cough, sputum production, hemoptysis, dyspnea, dyspnea on exertion, orthopnea Gastrointestinal: Negative for any abdominal pain, nausea, vomiting, diarrhea, constipation, blood in stool, blood in vomit : Negative for any urinary frequency, dysuria, retention, blood in urine Muscle skeletal: Negative for any muscle joint pain, stiffness, myalgias, arthralgias, neck pain, back pain Neurological: Negative for any headache, syncope, numbness or tingling, dizziness Skin: Negative for any rashes, lumps, itching, abrasions, lacerations Psychiatric: Negative for any depression, anxiety, stress, suicidal ideation, ho micidal ideation Hematologic: Negative for any easy bruising, excessive bruising, easy bleeding Allergies: Negative for any eczema, hives, rash EXAM <MARTINEZ Alarcon - Last Filed: 06/24/23 16:43> Physical Exam Const Vital Signs: 06/24/23 12:27 Temperature 97.1 F L Temperature Source Temporal Pulse Rate 83 Respiratory Rate 18 Blood Pressure 133/89 H Blood Pressure Mean 103 Pulse Ox 97 Oxygen Delivery Method Room Air <Terence Berumen MD - Last Filed: 06/24/23 20:00> Physical Exam Const Vital Signs: 06/24/23 12:27 Temperature 97.1 F L Temperature Source Temporal Pulse Rate 83 Respiratory Rate 18 Blood Pressure 133/89 H Blood Pressure Mean 103 Pulse Ox 97 Oxygen Delivery Method Room Air MDM <MARTINEZ Alarcon - Last Filed: 06/24/23 16:43> MDM Lab Data Labs: Laboratory Results - last 24 hr 06/24/23 06/24/23 13:47 14:46 WBC 13.5 H RBC 4.47 Hgb 12.5 Hct 37.5 MCV 83.9 MCH 28.0 MCHC 33.3 RDW Std Deviation 38.7 RDW Coeff of Marcel 12.8 Plt Count 259 MPV 10.3 Immature Gran % (Auto) 0.300 Neut % (Auto) 86.6 H Lymph % (Auto) 8.1 L [place] % (Auto) 4.4 Eos % (Auto) 0.4 Baso % (Auto) 0.2 Absolute Neuts (auto) 11.7 H Absolute Lymphs (auto) 1.10 Nucleated RBC % 0 Sodium 139 Potassium 3.5 Chloride 110 H Carbon Dioxide 23.0 Anion Gap 6 BUN 23 H Creatinine 0.79 Est GFR (MDRD) Af Amer 112 Est GFR (MDRD) Non-Af 93 BUN/Creatinine Ratio 29.3 H Glucose 129 H Calcium 8.7 Total Bilirubin 0.50 AST 13 L ALT 20 Alkaline Phosphatase 49 Total Protein 7.5 Albumin 4.1 Globulin 3.4 Albumin/Globulin Ratio 1.2 Lipase 211 H Serum , Qual NEGATIVE Urine Color Yellow Urine Clarity Clear Urine pH 8.0 Ur Specific [place] 1.015 Urine Protein Negative Urine Glucose (UA) Normal Urine Ketones 150 A* Urine Occult Blood Negative Urine Nitrite Negative Urine Bilirubin Negative Urine Urobilinogen Normal Ur Leukocyte Esterase Negative Urine RBC 0-5 SEEN Urine WBC 0-5 SEEN Ur Squamous Epith Cells 0 SEEN Urine Bacteria 0 SEEN Urine Mucus 0 SEEN Radiography Diagnostic Testing: Clinical Impression(s) from Imaging Studies Abdomen/Pelvis CT 06/24/23 14:13 IMPRESSION: Bilateral ovarian cysts. Status post appendectomy. Electronically Signed: Jose Nguyen MD at 15:28 EDT , Treatment and Re-Evaluation :: Patient arrives in mild distress secondary to abdominal pain. This is chronic. Patient physical examination insistent with acute on chronic abdominal pain. However patient did have significant pain, I looked at the patient's past records, the patient's last CT scan was in 2021 in May. Patient received a full abdominal work-up including IV morphine, Zofran. Patient's laboratory values showed a leukocytosis white blood count of 13.5, chemistries were unremarkable, lipase was slightly elevated at 211. Patient is not . Patient's urinalysis did show ketones, I do believe patient is slightly dehydrated, she was given 2 L of normal saline. Patient's CAT scan of the abdomen pelvis concerning for any acute cholecystitis, bowel obstruction, diverticulitis this shows bilateral ovarian cyst, status post appendectomy. On reevaluation, the patient was feeling much better. She received an IM dose of Phenergan, as well as a GI cocktail. She will be discharged home and follow-up outpatient. Patient was given strict return precaution. Stable for discharge. <Terence Berumen MD - Last Filed: 06/24/23 20:00> MDM MDM Narrative Medical decision making narrative: Dr. Berumen: I have personally performed a face to face assessment of the patient and have reviewed the MAIA Note. I performed a substantive portion of the visit including all aspects of the following. My morrison findings include: History is nausea and vomiting, epigastric pain Exam is febrile. Vital signs noted. Abdomen soft with mild tenderness to palpation in epigastrium. Regular rate and rhythm. Lungs clear to auscultation bilaterally. Medical Decision Making: In the differential diagnosis is gastritis versus pancreatitis versus bowel obstruction. Check labs. Mildly elevated lipase. CT shows no evidence of acute pancreatitis. Patient given GI cocktail with improvement and can tolerate p.o. She has medication for gastritis at home which she will take. Follow-up gastroenterology. Discharge. Other additions or changes: [None] History & Record Review Discussion w/independent historian: Patient Additional record(s) reviewed:: Prior ED visit Lab Data Attestation: I reviewed the patient's lab results. Labs: Laboratory Results - last 24 hr 06/24/23 06/24/23 13:47 14:46 WBC 13.5 H RBC 4.47 Hgb 12.5 Hct 37.5 MCV 83.9 MCH 28.0 MCHC 33.3 RDW Std Deviation 38.7 RDW Coeff of Marcel 12.8 Plt Count 259 MPV 10.3 Immature Gran % (Auto) 0.300 Neut % (Auto) 86.6 H Lymph % (Auto) 8.1 L [place] % (Auto) 4.4 Eos % (Auto) 0.4 Baso % (Auto) 0.2 Absolute Neuts (auto) 11.7 H Absolute Lymphs (auto) 1.10 Nucleated RBC % 0 Sodium 139 Potassium 3.5 Chloride 110 H Carbon Dioxide 23.0 Anion Gap 6 BUN 23 H Creatinine 0.79 Est GFR (MDRD) Af Amer 112 Est GFR (MDRD) Non-Af 93 BUN/Creatinine Ratio 29.3 H Glucose 129 H Calcium 8.7 Total Bilirubin 0.50 AST 13 L ALT 20 Alkaline Phosphatase 49 Total Protein 7.5 Albumin 4.1 Globulin 3.4 Albumin/Globulin Ratio 1.2 Lipase 211 H Serum , Qual NEGATIVE Urine Color Yellow Urine Clarity Clear Urine pH 8.0 Ur Specific [place] 1.015 Urine Protein Negative Urine Glucose (UA) Normal Urine Ketones 150 A* Urine Occult Blood Negative Urine Nitrite Negative Urine Bilirubin Negative Urine Urobilinogen Normal Ur Leukocyte Esterase Negative Urine RBC 0-5 SEEN Urine WBC 0-5 SEEN Ur Squamous Epith Cells 0 SEEN Urine Bacteria 0 SEEN Urine Mucus 0 SEEN Radiography Diagnostic Testing: Clinical Impression(s) from Imaging Studies Abdomen/Pelvis CT 06/24/23 14:13 IMPRESSION: Bilateral ovarian cysts. Status post appendectomy. Electronically Signed: Jose Nguyen MD at 15:28 EDT , Discharge Plan Triage Chief Complaint: Nausea/Vomiting ED Midlevel Provider: Alberto Lucero ED Provider: Terence Berumen Dx/Rx/DC Orders Clinical Impression: Gastritis, Elevated lipase, Nausea & vomiting Instructions: ED Gastritis (Adult) Prescriptions: No Action famotidine [famotidine] 20 mg tablet 20 mg PO BID Qty: 28 0RF dicyclomine 10 mg capsule 20 mg PO TIDAC Qty: 20 0RF promethazine [Promethegan] 25 mg suppository 25 mg RECTAL Q6H PRN PRN (Reason: Nausea) Qty: 6 0RF Primary Care Provider: Antony Trevino Referrals: Antony Trevino DO [Primary Care Provider] - Activity Restrictions/Additional Instructions: Please follow-up with your gastroenterology Disposition Disposition: Home, Self Care Discharge Date/Time: 06/24/23 16:48
[2023-06-24] MEDS: proMETHazine 25 MG/ML Syringe 12.5 MG IM (15:35)
[2023-06-24] MEDS: 0.9% Normal Saline (1000mL) 1,000 ML 999 ML IV (15:35)
[2023-06-24] MEDS: Mag Hydrox/Al Hydrox/Simeth 30 ML UDC PO (15:54)
== END 2023-06-24 16:48 | disposition home or self-care (01) ==
PROVIDERS: Nurse Practitioner; Emergency Provider Emergency Medicine; PCP Family Medicine; Visit Provider Emergency Medicine
DX: K29.70 Gastritis, unspecified, without bleeding (principal); R74.8 Abnormal levels of other serum enzymes; R10.9 Unspecified abdominal pain; G89.29 Other chronic pain; F17.210 Nicotine dependence, cigarettes, uncomplicated; Z79.899 Other long term (current) drug therapy; E86.0 Dehydration
CPT/HCPCS: 74177; 80053; 81001; 83690; 84703; 85025; 96361; 96372; 96374; 96375; 99285; J7030; Q9967; A4216; J2405

== ENCOUNTER 2023-09-05 07:15 | Emergency (ER) | payer OTHER, SELFPAY ==
[2023-09-05 07:16] VITALS: BP 137/78; PULSE 83; RESP 18; TEMP 36.9; O2SAT 99; BMI 23.2
--- NOTE | 2023-09-05 07:47 | EDS_ITS ---
HPI HPI - GI History of Present Illness Chief Complaint: Nausea/Vomiting Informant: patient Abdominal Pain/Flank Pain Onset: Days (4) Context: Sudden Onset Timing: Continuous Quality: Aching, Cramping and Stabbing Location: Diffuse Worsened by: Nothing Relieved by: Nothing Nausea/Vomiting/Emesis GI Symptom: Positive for Nausea and Vomiting Onset: Days (4) Quality: Positive for Nonbilious; Negative for Blood streaks, Coffee ground or Hematemesis Diarrhea/Melena/Hematochezia GI Symptom: Negative for Diarrhea, Melena or Hematochezia Associated Symptoms Associated Symptoms: Negative for Dysuria, Frequency or Hematuria LMP: 2 weeks ago Narrative Narrative: Patient presents with abdominal pain, nausea, and vomiting for the past 4 days. Patient states she has been unable to keep anything down for the past 4 days. Patient describes her pain as burning, stabbing, and cramping. Patient states her pain is diffuse across her abdomen. Patient states nothing makes it better nothing makes it worse. Patient denies any hematemesis or coffee-ground emesis. Patient denies any diarrhea, melena, or hematochezia. Patient denies any urinary complaints. [facility] Medical History Helicobacter pylori (H. pylori) IBS (irritable bowel syndrome) Ovarian cyst Home Medications dicyclomine 10 mg capsule 20 mg (2 x 10 mg) PO TIDAC #20 CAPSULES 05/12/22 [Rx Last Taken Unknown] famotidine 20 mg tablet 20 mg PO BID #28 TABLETS 05/12/22 [Rx Last Taken Unknown] promethazine 25 mg rectal suppository (Promethegan) 25 mg RECTAL Q6H PRN PRN Nausea ##6 05/14/22 [Rx Last Taken Unknown] promethazine 25 mg tablet 25 mg PO Q6H PRN nausea and vomiting 09/05/23 [History Last Taken 09/05/23 07:00] Allergy/AdvReac Type Severity Reaction Status Date / Time erythromycin base Allergy Hives Verified 09/05/23 07:19 Surgical History History of appendectomy Social History household members: friend(s) Smoking Status: Current every day smoker tobacco type: cigarettes alcohol intake: current substance use type: marijuana ROS ROS ED Constitutional Constitutional ED: Denies chills or fever(s) Eyes Eyes: Denies blurry vision or change in vision ENT ENT ED: Denies rhinorrhea or sore throat Cardiovascular Cardiovascular: Denies chest pain or palpitations Respiratory/Chest Respiratory/Chest: Denies cough or dyspnea Gastrointestinal Gastrointestinal: Reports abdominal pain, nausea and vomiting Genitourinary Genitourinary ED: Denies dysuria or hematuria Musculoskeletal Musculoskeletal: Denies back pain or neck pain Integumentary Denies abscess or rash Neurologic Neurologic: Denies headache(s) or weakness Allergic/Immunologic Allergic/Immunologic ED: Denies mouth swelling or urticaria EXAM Physical Exam Const Vital Signs: 09/05/23 07:16 Temperature 98.4 F Temperature Source Temporal Pulse Rate 83 Respiratory Rate 18 Blood Pressure 137/78 H Blood Pressure Mean 97 Pulse Ox 99 Oxygen Delivery Method Room Air Positive well nourished and well developed General Appearance ED: well developed and NAD HEENT Reports moist mucous membranes Neck supple and no JVD Resp normal respiratory effort and clear to auscultation bilaterally Cardio regular rate and regular rhythm GI non-distended Palpation: soft and tender epigastric, LUQ and RUQ; Negative for guarding or rebound tenderness present Neuro CN's II-XII intact bilaterally, moves all extremities and no sensory deficits noted Sensorium / Orientation: alert Motor Exam: strength 5/5 throughout Psych mental status grossly normal MDM MDM MDM Narrative Medical decision making narrative: Differential diagnosis includes irritable bowel syndrome, gastritis, gastroenteritis, peptic ulcer disease, pancreatitis, and urinary tract infection. CBC will be obtained to assess for leukocytosis and anemia. Comprehensive metabolic profile will be obtained to assess for hepatic function, renal function, and electrolyte abnormality. Lipase will be obtained to assess for pancreatitis. Urinalysis will be obtained to assess for urinary tract infection and pyelonephritis. Lab Data Attestation: I reviewed the patient's lab results. Lab results narrative: CBC was reviewed. There is a mild anemia with a hemoglobin of 10.8 and hematocrit 33.9. Platelets were normal. Comprehensive metabolic profile was reviewed. Potassium was low at 3.0. The remainder was within normal limits. Lipase was reviewed and was normal at 65. Urinalysis was reviewed. There is no evidence of urinary tract infection or hematuria. Labs: Laboratory Results - last 24 hr 09/05/23 09/05/23 07:25 08:10 WBC 8.0 RBC 3.94 L Hgb 10.8 L Hct 33.9 L MCV 86.0 MCH 27.4 MCHC 31.9 L RDW Std Deviation 42.1 RDW Coeff of Marcel 13.4 Plt Count 249 MPV 10.1 Immature Gran % (Auto) 0.400 Neut % (Auto) 71.9 H Lymph % (Auto) 21.8 [place] % (Auto) 5.1 Eos % (Auto) 0.2 Baso % (Auto) 0.6 Absolute Neuts (auto) 5.8 Absolute Lymphs (auto) 1.75 Nucleated RBC % 0 Sodium 139 Potassium 3.0 L Chloride 107 Carbon Dioxide 26.0 Anion Gap 6 BUN 23 H Creatinine 0.94 Estim Creat Clear Calc 73.71 Est GFR (MDRD) Af Amer 91 Est GFR (MDRD) Non-Af 75 BUN/Creatinine Ratio 24.4 H Glucose 96 Calcium 8.9 Total Bilirubin 0.60 AST 14 L ALT 20 Alkaline Phosphatase 46 Total Protein 7.2 Albumin 4.0 Globulin 3.2 Albumin/Globulin Ratio 1.2 Lipase 65 Urine Color Yellow Urine Clarity Sl. Cloudy Urine pH 6.5 Ur Specific [place] 1.020 Urine Protein 30 H Urine Glucose (UA) Normal Urine Ketones 50 H Urine Occult Blood Negative Urine Nitrite Negative Urine Bilirubin 1 H Urine Urobilinogen 1 H Ur Leukocyte Esterase 25 H Urine RBC 0 SEEN Urine WBC 0 SEEN Ur Squamous Epith Cells 5-10 SEEN Urine Bacteria 0 SEEN Urine Mucus 0 SEEN Treatment and Re-Evaluation :: Patient was given IV fluids and Zofran initially. Patient was given a dose of oral potassium. Patient was complaining of abdominal pain. Patient was given a dose of morphine. Patient was instructed to continue her antiemetics as prescribed. Patient was instructed to start with a liquid diet and advance as tolerated. Patient was instructed to follow-up with her primary care physician in 3 to 5 days for reevaluation. Patient understood and was agreeable with the plan. All questions were answered. Discharge Plan Triage Chief Complaint: Nausea/Vomiting ED Provider: Sebastián Dunn Dx/Rx/DC Orders Clinical Impression: Nausea and vomiting, Abdominal pain Instructions: ED Abdominal Pain Unkn Cause Fem, ED Vomiting (Adult) Prescriptions: No Action famotidine [famotidine] 20 mg tablet 20 mg PO BID Qty: 28 0RF dicyclomine 10 mg capsule 20 mg PO TIDAC Qty: 20 0RF promethazine [Promethegan] 25 mg suppository 25 mg RECTAL Q6H PRN PRN (Reason: Nausea) Qty: 6 0RF promethazine 25 mg tablet 25 mg PO Q6H PRN (Reason: nausea and vomiting) Primary Care Provider: Antony Trevino Referrals: Antony Trevino DO [Primary Care Provider] - 3-5 Days Disposition Disposition: Home, Self Care
[2023-09-05] MEDS: Ondansetron 4 MG/2 ML Vial IV ×2 (08:00→10:08)
[2023-09-05] MEDS: 0.9% Normal Saline (1000mL) 1,000 ML 1000 ML IV (08:00)
[2023-09-05 08:05] LABS: Absolute Lymphocyte Count 1.75 X10^3/uL (0.83-4.51); Absolute Neutrophil Count 5.8 X10^3/uL (2.0-7.7); Basophil# 0.05 X10^3/uL; Basophil% 0.6 % (0-1); Eosinophil# 0.02 X10^3/uL; Eosinophils% 0.2 % (0-5); Hematocrit 33.9 % (37-47); Hemoglobin 10.8 g/dL (12.0-15.0); Lymphocyte # 1.75 X10^3/ul (0.83-4.51); Lymphocyte % 21.8 % (19-41); Mean Corp Hgb Conc 31.9 g/dL (32-36); Mean Corpuscular Hgb 27.4 pg (27.0-32.0); Mean Platelet Vol. 10.1 fl (6.2-12.0); Monocyte# 0.41 X10^3/uL; Monocyte% 5.1 % (0-10); NRBC Flagged by Analyzer 0 % (0-5); Neutrophil # 5.78 X10^3/uL (2.7-7.7); Neutrophil % 71.9 % (47-70); Platelet Count 249 K/mm3 (150-450); RBC Distribution Width CV 13.4 % (11.6-14.6); RBC Distribution Width SD 42.1 fl (35.1-43.9); Red Blood Count 3.94 M/mm3 (4.2-5.4)
[2023-09-05 08:15] LABS: Bacteria 0 SEEN /hpf (None Seen); Mucous, Urine 0 SEEN /hpf (<or=2+); Red Blood Cells-Urine 0 SEEN /hpf (0-5); White Blood Cells 0 SEEN /hpf (0-5)
[2023-09-05 08:18] LABS: ALB/GLOB Ratio 1.2 RATIO (0.9-2.4); AST(SGOT) 14 U/L (15-37); Alanine Aminotransfer ALT/SGPT 20 U/L (13-56); Alkaline Phosphatase 46 U/L (45-117); Anion Gap 6 (5-15); BUN 23 mg/dL (7-18); BUN/Creat Ratio 24.4 RATIO (10-20); Calcium,Total 8.9 mg/dL (8.5-10.1); Chloride 107 mmol/L (98-107); Creatinine, Serum 0.94 mg/dL (0.55-1.02); EST Glomerular Filtration Rate 75 mL/min (>60); Est Glom Filt Rate - Afr Amer 91 mL/min (>60); Estimated Creatinine Clearance 73.71 ml/min; Globulin 3.2 g/dL (2.2-4.2); Glucose 96 mg/dL (74-106); Lipase 65 U/L (13-75); Protein, Total 7.2 g/dL (6.4-8.2); Sodium Level 139 mmol/L (136-145)
[2023-09-05 08:34] LABS: Glucose, Dipstick Normal (Normal); Ketone-Dipstick 50 mg/dl (Negative); Leukocyte Esterase-Dipstick 25 /ul (Negative); Nitrite-Dipstick Negative (Negative); Occult Blood-Urine Negative /ul (Negative); Protein-Dipstick 30 mg/dl (Negative); Urine Urobilinogen 1 mg/dl (Normal); Urine pH 6.5 (5.0 - 8.0)
[2023-09-05 08:40] LABS: Color, Urine Yellow (Yellow); Urine Bilirubin Dipstick 1 mg/dL (Negative); Urine Clarity Sl. Cloudy (Clear)
[2023-09-05 08:41] LABS: Squamous Epithelial Cells - UA 5-10 SEEN /hpf (5-10)
[2023-09-05] MEDS: Potassium Chloride Oral Tablet 20 MEQ 40 MEQ PO (09:44)
[2023-09-05] MEDS: Morphine 4 MG/ML Syringe IV (09:55)
[2023-09-05] MEDS: Ketorolac 30 MG/ML Syringe IV (10:08)
[2023-09-05 10:16] VITALS: BP 148/58; PULSE 88; RESP 20; O2SAT 99
== END 2023-09-05 10:19 | disposition home or self-care (01) ==
PROVIDERS: Emergency Provider Emergency Medicine; PCP Family Medicine; Visit Provider Emergency Medicine
DX: R11.2 Nausea with vomiting, unspecified (principal); E87.6 Hypokalemia; R10.84 Generalized abdominal pain; Z79.899 Other long term (current) drug therapy; F17.210 Nicotine dependence, cigarettes, uncomplicated
CPT/HCPCS: 80053; 81001; 83690; 85025; 96361; 96374; 96375; 96376; 99285; J7030; A4216; J2405

== ENCOUNTER 2023-11-16 18:05 | Emergency (ER) | payer MEDICAID, SELFPAY ==
[2023-11-16 18:08] VITALS: BP 146/88; PULSE 73; RESP 16; TEMP 36.3; O2SAT 98; BMI 22.7
[2023-11-16 18:15] VITALS: BP 141/92; PULSE 77; RESP 16; O2SAT 98
--- NOTE | 2023-11-16 18:22 | EX.ED.DYSGE1 ---
HPI <MARTINEZ Alarcon - Last Filed: 11/16/23 22:32> History of Present Illness Chief Complaint: Abd Pain Narrative Narrative: Right patient is a 28-year-old female with history of gastroparesis who who frequently is seen in the emergency department for abdominal pain. Patient states that she was at [facility] today, she had significant abdominal pain, nausea and vomiting. They gave her Zofran and Protonix, then discharged home. Patient states that she was not any better. Patient states that she is in a significant amount of pain. Patient states that she does smoke marijuana however not every day. She did not smoke marijuana today. Patient states this is like her normal abdominal pain. She does see a GI specialist in [facility]. [facility] <MARTINEZ Alarcon - Last Filed: 11/16/23 22:32> [facility] Medical History (Updated 11/16/23 @ 22:30 by MARTINEZ Alarcon) Helicobacter pylori (H. pylori) Hernia IBS (irritable bowel syndrome) Ovarian cyst Home Medications dicyclomine 10 mg capsule 20 mg (2 x 10 mg) PO TIDAC #20 CAPSULES 05/12/22 [Rx Last Taken Unknown] promethazine 25 mg rectal suppository (Promethegan) 25 mg RECTAL Q6H PRN PRN Nausea ##6 05/14/22 [Rx Last Taken Unknown] promethazine 25 mg tablet 25 mg PO Q6H PRN nausea and vomiting 09/05/23 [History Last Taken 09/05/23 07:00] dicyclomine 20 mg tablet 20 mg PO TID 11/16/23 [History Last Taken Unknown] omeprazole 20 mg capsule,delayed release 20 mg PO Q8H 11/16/23 [History Last Taken Unknown] ondansetron 8 mg disintegrating tablet 8 mg PO Q8H 11/16/23 [History Last Taken Unknown] oxycodone-acetaminophen 5 mg-325 mg tablet (Percocet) 1 tab PO Q8H PRN pain 3 days #8 tabs 11/16/23 [Rx Last Taken Unknown] pantoprazole 40 mg tablet,delayed release 40 mg PO Q12H 11/16/23 [History Last Taken Unknown] promethazine 25 mg rectal suppository 25 mg VA Q6H PRN nausea and vomiting #12 ea 11/16/23 [Rx Last Taken Unknown] sucralfate 1 gram tablet 1 g PO TID 11/16/23 [History Last Taken Unknown] tenapanor 50 mg tablet (Ibsrela) 50 mg PO BID 11/16/23 [History Last Taken Unknown] Allergy/AdvReac Type Severity Reaction Status Date / Time erythromycin base Allergy Hives Verified 11/16/23 18:13 Surgical History History of appendectomy Social History household members: friend(s) Smoking Status: Current every day smoker tobacco type: e-cigarettes alcohol intake: current substance use type: marijuana ROS <MARTINEZ Alarcon - Last Filed: 11/16/23 22:32> ROS ED ROS Narrative Constitutional: Negative for fever, weight loss, weakness. Positive for chills Eyes: Negative for vision loss, vision change, double vision ENT: Negative for any sore throat, ear pain, congestion Cardiovascular: Negative for any chest pain, tightness, palpitations Respiratory: Negative for any cough, sputum production, hemoptysis, dyspnea, dyspnea on exertion, orthopnea Gastrointestinal: Negative for any constipation, blood in stool, blood in vomit. Positive for abdominal pain, nausea, vomiting, diarrhea : Negative for any urinary frequency, dysuria, retention, blood in urine Muscle skeletal: Negative for any neck pain, back pain Neurological: Negative for any headache, syncope, dizziness Skin: Negative for any rashes, itching, abrasions, lacerations Psychiatric: Negative for any depression, anxiety, stress, suicidal ideation, homicidal ideation Hematologic: Negative for any excessive bruising, easy bleeding EXAM <MARTINEZ Alarcon - Last Filed: 11/16/23 22:32> Physical Exam Narrative Exam Narrative: Vital signs reviewed. Patient does appear to be slightly anxious, patient does yell out that she is just in pain. Patient looks generally well. HEET: Head normocephalic atraumatic, TMs clear bilaterally. Posterior pharynx is clear, dry mucous membranes. Nares clear bilaterally. Neck: Supple with no lymphadenopathy or tenderness. No signs of meningismus. Cardiac: Regular rate and rhythm no murmurs gallops or rubs, equal peripheral pulses bilaterally. Respiratory: Lungs clear to auscultation bilaterally. No chest tenderness. Abdomen: Soft, nontender, nondistended. No abdominal bruit or pulsatile masses. No hepatosplenomegaly. While listening for bowel sounds, I did press all over the patient's abdomen, did not exhibit any pain response. When I do palpate, the patient has pain throughout the entire lower abdomen. There is no peritoneal signs, abdomen is soft. Extremities: No peripheral edema, no signs of gross trauma or deformity. Active full range of motion of all extremities. Neuro: Cranial nerves II through XII intact, no focal neurological deficits. Skin: Clean dry and intact with no rash, purpura, petechiae, vesicles or pustules. Backs/flank: No CVA tenderness, no midline spinal tenderness, no deformity. Psych: Normal mood and affect. No SI, HI or acute psychosis. Const Vital Signs: 11/16/23 18:08 11/16/23 18:15 11/16/23 22:02 Temperature 97.4 F L Temperature Source Temporal Pulse Rate 73 77 72 Respiratory Rate 16 16 16 Blood Pressure 146/88 H 141/92 H 141/89 H Blood Pressure Mean 107 108 106 Pulse Ox 98 98 95 Oxygen Delivery Method Room Air Room Air Room Air Positive well nourished and well developed General Appearance ED: well developed <Dr. Rashel Nelson MD - Last Filed: 11/17/23 01:01> Physical Exam Const Vital Signs: 11/16/23 18:08 11/16/23 18:15 11/16/23 22:02 Temperature 97.4 F L Temperature Source Temporal Pulse Rate 73 77 72 Respiratory Rate 16 16 16 Blood Pressure 146/88 H 141/92 H 141/89 H Blood Pressure Mean 107 108 106 Pulse Ox 98 98 95 Oxygen Delivery Method Room Air Room Air Room Air MDM <MARTINEZ Alarcon - Last Filed: 11/16/23 22:32> MDM Lab Data Labs: Laboratory Results - last 24 hr 11/16/23 11/16/23 18:35 19:16 WBC 12.2 H RBC 3.99 L Hgb 10.9 L Hct 33.7 L MCV 84.5 MCH 27.3 MCHC 32.3 RDW Std Deviation 37.0 RDW Coeff of Marcel 12.0 Plt Count 231 MPV 9.7 Immature Gran % (Auto) 0.200 Neut % (Auto) 85.1 H Lymph % (Auto) 12.3 L [place] % (Auto) 2.1 Eos % (Auto) 0.0 Baso % (Auto) 0.3 Absolute Neuts (auto) 10.4 H Absolute Lymphs (auto) 1.50 Nucleated RBC % 0 Sodium 142 Potassium 3.4 L Chloride 112 H Carbon Dioxide 23.0 Anion Gap 7 BUN 20 H Creatinine 0.82 Estim Creat Clear Calc 84.49 Est GFR (MDRD) Af Amer 107 Est GFR (MDRD) Non-Af 88 BUN/Creatinine Ratio 24.4 H Glucose 121 H Calcium 8.7 Total Bilirubin 0.40 AST 11 L ALT 22 Alkaline Phosphatase 51 Total Protein 7.1 Albumin 4.1 Globulin 3.0 Albumin/Globulin Ratio 1.4 Lipase 17 Serum , Qual NEGATIVE Urine Color Yellow Urine Clarity Clear Urine pH 8.0 Ur Specific [place] 1.010 Urine Protein 15 H Urine Glucose (UA) Normal Urine Ketones 150 A* Urine Occult Blood Negative Urine Nitrite Negative Urine Bilirubin Negative Urine Urobilinogen Normal Ur Leukocyte Esterase Negative Urine RBC 0 SEEN Urine WBC 0 SEEN Ur Squamous Epith Cells 0 SEEN Urine Bacteria 0 SEEN Urine Mucus 0 SEEN Urine Opiates Screen NEGATIVE Urine Methadone Screen NEGATIVE Ur Barbiturates Screen NEGATIVE Ur Phencyclidine Scrn NEGATIVE Ur Amphetamines Screen NEGATIVE MDMA (Ecstasy) Screen NEGATIVE U Benzodiazepines Scrn NEGATIVE Urine Cocaine Screen NEGATIVE U Cannabinoids Screen POSITIVE H Ur Drug Screen Comment Radiography Diagnostic Testing: Clinical Impression(s) from Imaging Studies Abdomen/Pelvis CT 11/16/23 19:41 IMPRESSION: Multiple liver with periportal edema which may be associated with nonspecific infectious process, differential diagnosis including congestive heart failure, pulmonary hypertension or Budd-Chiari. Diffuse colitis. Status post appendectomy. No bowel obstruction. Electronically Signed: Miroslava Leon MD at 21:37 EST , Treatment and Re-Evaluation :: Patient appears to be in no obvious respiratory distress, patient presents to the emergency department with complaints of acute on chronic abdominal pain, nausea and vomiting. Differential diagnose includes cannabinoid hyperemesis, cyclic vomiting syndrome, gastroenteritis, bowel obstruction. Patient did have a negative test earlier today at [facility]. Patient's last CT scan on our records is June 2023, this showed bilateral ovarian cyst. Patient is been seen here several times for abdominal pain. Patient is not seen her GI specialist and a while . Patient will receive some basic laboratory values including CBC, CMP, lipase. Patient be treated with IV Haldol, Toradol, Bentyl. Patient be reevaluated. Patient continued to have abdominal pain, patient did receive a CT scan. CT scan showed multiple liver with periportal edema which may be associated with nonspecific infectious process, differential diagnosis includes congestive heart failure pulmonary hypertension or Budd Chiari. Patient has no evidence of any shortness of breath. Patient also has diffuse colitis, status post appendectomy, no bowel obstruction. Secondary to the patient having diffuse colitis, this is the patient's second ER visit today, patient will be given IV pain medicine as well as IV nausea medicine. This will be on top of what the patient already received. I will reach out to Dr. Whitt from GI for further evaluation. I spoke to GI, they recommended some pain medicine, dicyclomine, nausea medicine. At this time, patient is stable for discharge. On reevaluation, the patient was feeling much better. Patient understands she needs to follow-up with her GI specialist. She is happy with the plan of care, all questions answered, stable for discharge. <Dr. Rashel Nelson MD - Last Filed: 11/17/23 01:01> [facility] Narrative Medical decision making narrative: I have personally performed a face to face assessment of the patient and have reviewed the MAIA Note. I performed a substantive portion of the visit including all aspects of the following. My morrison findings include: History: Patient presents with epigastric pain. She states she has been getting this for a while. She only gets it every 1 to 3 months. It is epigastric. She gets acid taste. She is on multiple meds. She states she is taking them but she seemed to hesitate when I ask. She states her symptoms started up again this morning. She tried her medicines but it did not work. She was seen at [facility]. They treated her send her home and she came here by ambulance. Exam: Mild epigastric tenderness. No rebound guarding or distention. Bowel sounds normal. Heart is regular. Lungs are clear normal sats. Patient was not getting better so we did scan her that showed some changes. Case was discussed with friend she will follow-up. Medical Decision Making: Lab Data Labs: Laboratory Results - last 24 hr 11/16/23 11/16/23 18:35 19:16 WBC 12.2 H RBC 3.99 L Hgb 10.9 L Hct 33.7 L MCV 84.5 MCH 27.3 MCHC 32.3 RDW Std Deviation 37.0 RDW Coeff of Marcel 12.0 Plt Count 231 MPV 9.7 Immature Gran % (Auto) 0.200 Neut % (Auto) 85.1 H Lymph % (Auto) 12.3 L [place] % (Auto) 2.1 Eos % (Auto) 0.0 Baso % (Auto) 0.3 Absolute Neuts (auto) 10.4 H Absolute Lymphs (auto) 1.50 Nucleated RBC % 0 Sodium 142 Potassium 3.4 L Chloride 112 H Carbon Dioxide 23.0 Anion Gap 7 BUN 20 H Creatinine 0.82 Estim Creat Clear Calc 84.49 Est GFR (MDRD) Af Amer 107 Est GFR (MDRD) Non-Af 88 BUN/Creatinine Ratio 24.4 H Glucose 121 H Calcium 8.7 Total Bilirubin 0.40 AST 11 L ALT 22 Alkaline Phosphatase 51 Total Protein 7.1 Albumin 4.1 Globulin 3.0 Albumin/Globulin Ratio 1.4 Lipase 17 Serum , Qual NEGATIVE Urine Color Yellow Urine Clarity Clear Urine pH 8.0 Ur Specific [place] 1.010 Urine Protein 15 H Urine Glucose (UA) Normal Urine Ketones 150 A* Urine Occult Blood Negative Urine Nitrite Negative Urine Bilirubin Negative Urine Urobilinogen Normal Ur Leukocyte Esterase Negative Urine RBC 0 SEEN Urine WBC 0 SEEN Ur Squamous Epith Cells 0 SEEN Urine Bacteria 0 SEEN Urine Mucus 0 SEEN Urine Opiates Screen NEGATIVE Urine Methadone Screen NEGATIVE Ur Barbiturates Screen NEGATIVE Ur Phencyclidine Scrn NEGATIVE Ur Amphetamines Screen NEGATIVE MDMA (Ecstasy) Screen NEGATIVE U Benzodiazepines Scrn NEGATIVE Urine Cocaine Screen NEGATIVE U Cannabinoids Screen POSITIVE H Ur Drug Screen Comment Radiography Diagnostic Testing: Clinical Impression(s) from Imaging Studies Abdomen/Pelvis CT 11/16/23 19:41 IMPRESSION: Multiple liver with periportal edema which may be associated with nonspecific infectious process, differential diagnosis including congestive heart failure, pulmonary hypertension or Budd-Chiari. Diffuse colitis. Status post appendectomy. No bowel obstruction. Electronically Signed: Miroslava Leon MD at 21:37 EST , Discharge Plan Triage Chief Complaint: Abd Pain ED Midlevel Provider: Alberto Lucero ED Provider: Rashel Nelson Dx/Rx/DC Orders Clinical Impression: Colitis, Abdominal pain Instructions: ED Understanding Colitis Prescriptions: New promethazine 25 mg suppository 25 mg VA Q6H PRN (Reason: nausea and vomiting) Qty: 12 0RF oxycodone-acetaminophen [Percocet] 5-325 mg tablet 1 tab PO Q8H PRN (Reason: pain) 3 Days Qty: 8 0RF No Action dicyclomine 10 mg capsule 20 mg PO TIDAC Qty: 20 0RF promethazine [Promethegan] 25 mg suppository 25 mg RECTAL Q6H PRN PRN (Reason: Nausea) Qty: 6 0RF promethazine 25 mg tablet 25 mg PO Q6H PRN (Reason: nausea and vomiting) Ibsrela 50 mg tablet 50 mg PO BID Patient Comments: TAKE 1 TABLET BY MOUTH TWICE A DAY IMMEDIATELY BEFORE MEALS sucralfate 1 gram tablet 1 g PO TID Patient Comments: take 1 tablet by mouth three times a day pantoprazole 40 mg tablet,delayed release (DR/EC) 40 mg PO Q12H Patient Comments: take 1 tablet by mouth twice a day TAKE ON EMPTY STOMACH AT LEAST 30 MINUTES BEFORE EATING ondansetron 8 mg tablet,disintegrating 8 mg PO Q8H omeprazole 20 mg capsule,delayed release(DR/EC) 20 mg PO Q8H Patient Comments: take 1 capsule by mouth every morning and every evening before meals dicyclomine 20 mg tablet 20 mg PO TID Patient Comments: take 1 tablet by mouth three times a day if needed for abdominal pain Primary Care Provider: Antony Trevino Referrals: Antony Trevino DO [Primary Care Provider] - Friend,DO Mazin [Med Staff - Active Staff] - Activity Restrictions/Additional Instructions: Please follow-up outpatient. Disposition Disposition: Home, Self Care Discharge Date/Time: 11/16/23 22:54
[2023-11-16] MEDS: 0.9% Normal Saline (1000mL) 1,000 ML 1000 ML IV (18:32)
[2023-11-16] MEDS: Dicyclomine 20 MG/2 ML Vial IM (18:32)
[2023-11-16] MEDS: Ketorolac 15 MG/ML Vial IV (18:34)
[2023-11-16] MEDS: Haloperidol Lactate 5 MG/ML Vial 2 MG IV (18:34)
[2023-11-16 18:48] LABS: Absolute Neutrophil Count 10.4 X10^3/uL (2.0-7.7); Basophil# 0.04 X10^3/uL; Basophil% 0.3 % (0-1); Hematocrit 33.7 % (37-47); Hemoglobin 10.9 g/dL (12.0-15.0); Lymphocyte % 12.3 % (19-41); Mean Corp Hgb Conc 32.3 g/dL (32-36); Mean Corpuscular Hgb 27.3 pg (27.0-32.0); Mean Corpuscular Volume 84.5 fL (81-99); Mean Platelet Vol. 9.7 fl (6.2-12.0); Monocyte# 0.25 X10^3/uL; Monocyte% 2.1 % (0-10); NRBC Flagged by Analyzer 0 % (0-5); Neutrophil # 10.36 X10^3/uL (2.7-7.7); Neutrophil % 85.1 % (47-70); Platelet Count 231 K/mm3 (150-450); Red Blood Count 3.99 M/mm3 (4.2-5.4); White Blood Count 12.2 K/mm3 (4.4-11.0)
[2023-11-16 18:56] LABS: Internal QC Validated? YES +Cl - CLEAR BKGD; Pregnancy, Serum, hCG Quali. NEGATIVE Negative; Record Kit Lot#, Serum Preg. HCG718086
[2023-11-16 19:09] LABS: ALB/GLOB Ratio 1.4 RATIO (0.9-2.4); AST(SGOT) 11 U/L (15-37); Alanine Aminotransfer ALT/SGPT 22 U/L (13-56); Albumin, Serum 4.1 g/dL (3.2-5.0); Alkaline Phosphatase 51 U/L (45-117); Anion Gap 7 (5-15); BUN 20 mg/dL (7-18); BUN/Creat Ratio 24.4 RATIO (10-20); Calcium,Total 8.7 mg/dL (8.5-10.1); Chloride 112 mmol/L (98-107); Creatinine, Serum 0.82 mg/dL (0.55-1.02); EST Glomerular Filtration Rate 88 mL/min (>60); Est Glom Filt Rate - Afr Amer 107 mL/min (>60); Estimated Creatinine Clearance 84.49 ml/min; Glucose 121 mg/dL (74-106); Lipase 17 U/L (13-75); Potassium 3.4 mmol/L (3.5-5.1); Protein, Total 7.1 g/dL (6.4-8.2); Sodium Level 142 mmol/L (136-145)
[2023-11-16 19:22] LABS: Bacteria 0 SEEN /hpf (None Seen); Mucous, Urine 0 SEEN /hpf (<or=2+); Red Blood Cells-Urine 0 SEEN /hpf (0-5); Squamous Epithelial Cells - UA 0 SEEN /hpf (5-10); White Blood Cells 0 SEEN /hpf (0-5)
[2023-11-16 19:23] LABS: Color, Urine Yellow (Yellow); Glucose, Dipstick Normal (Normal); Leukocyte Esterase-Dipstick Negative /ul (Negative); Nitrite-Dipstick Negative (Negative); Occult Blood-Urine Negative /ul (Negative); Protein-Dipstick 15 mg/dl (Negative); Urine Bilirubin Dipstick Negative (Negative); Urine Clarity Clear (Clear); Urine Urobilinogen Normal (Normal)
[2023-11-16 19:28] LABS: Ketone-Dipstick 150 mg/dl (Negative)
--- NOTE | 2023-11-16 19:41 | CT_ITS ---
STUDY: CT ABDOMEN AND PELVIS WITH CONTRAST REASON FOR EXAM: Female, 28 years old. abdominal pain RADIATION DOSAGE (If Supplied By Facility): CTDIvol = ( 12.68 ) mGy, DLP = ( 419.71 ) mGycm TECHNIQUE: Transaxial images were obtained from the dome of the diaphragm to the symphysis pubis without oral contrast. IV 100mL Isovue-370 was administered. Sagittal and coronal images were reconstructed. Individualized dose optimization techniques were used for this CT. COMPARISON: 06/24/2023. FINDINGS: The visualized lung bases are unremarkable. The visualized portions of the heart are within normal limits. There is abnormal enhancement of the liver with mottled appearance and nutmeg. There is questionable mild periportal edema. Visualized gallbladder is unremarkable. Normal spleen. Normal pancreas. Normal bilateral adrenal glands. Normal right kidney. There are areas of scarring involving the left kidney, otherwise unremarkable left kidney with no hydronephrosis. Normal visualized stomach. Normal small intestine. There is diffuse thickening of the wall throughout the colon concerning for diffuse colitis. Distinct appendix not visualized with sutures by the cecum suggestive of previous appendectomy. Normal abdominal aorta. Normal inferior vena cava. Normal retroperitoneum. Normal urinary bladder. The uterus is retroflexed. Small amount of free fluid in the cul-de-sac. Normal abdominal wall. Normal osseous structures. CT/Abdomen/Pelvis W IV Cont ONLY IMPRESSION: Multiple liver with periportal edema which may be associated with nonspecific infectious process, differential diagnosis including congestive heart failure, pulmonary hypertension or Budd-Chiari. Diffuse colitis. Status post appendectomy. No bowel obstruction. Electronically Signed: Miroslava Leon MD at 21:37 EST ,
[2023-11-16 19:44] LABS: Vista UDS pH Range 8
[2023-11-16 19:55] LABS: Amphetamine Urine VISTA NEGATIVE (<1000 ng/mL); Barbiturate Urine VISTA NEGATIVE (< 200 ng/mL); Benzodiazepine Urine VISTA NEGATIVE (< 200 ng/mL); Cocaine Urine VISTA NEGATIVE (< 300 ng/mL); Ecstacy Urine VISTA NEGATIVE (< 500 ng/mL); Methadone Urine VISTA NEGATIVE (< 300 ng/mL); PCP Urine VISTA NEGATIVE (< 25 ng/mL); THC Urine VISTA POSITIVE (< 50 ng/mL)
[2023-11-16] MEDS: Ondansetron 4 MG/2 ML Vial IV (22:00)
[2023-11-16] MEDS: Morphine 4 MG/ML Syringe IV (22:00)
[2023-11-16 22:02] VITALS: BP 141/89; PULSE 72; RESP 16; O2SAT 95
== END 2023-11-16 22:54 | disposition home or self-care (01) ==
PROVIDERS: Nurse Practitioner; Emergency Provider Emergency Medicine; PCP Family Medicine; Visit Provider Emergency Medicine
DX: K52.9 Noninfective gastroenteritis and colitis, unspecified (principal); F17.290 Nicotine dependence, other tobacco product, uncomplicated; R10.9 Unspecified abdominal pain
CPT/HCPCS: 74177; 80053; 80307; 81001; 83690; 84703; 85025; 96361; 96372; 96374; 96375; 99283; J7030; Q9967; A4216; J2405

== ENCOUNTER 2024-01-06 08:58 | Emergency (ER) | payer MEDICAID, SELFPAY ==
[2024-01-06 09:04] VITALS: BP 171/91; PULSE 94; RESP 18; TEMP 36.3; O2SAT 96; BMI 22.9
--- NOTE | 2024-01-06 09:05 | EDS_ITS ---
HPI History of Present Illness Chief Complaint: Nausea/Vomiting Detail of Chief Complaint: Abdominal pain with nausea and vomiting Informant: patient Onset/Context/Timing Onset: Days Context: Sudden Onset Timing: Continuous and Waxes and wanes Quality: Pain Location: Central upper abdomen Current Severity: Severe Maximum Severity: Severe Worsened by: Vomiting Relieved by: Nothing Associated Symptoms Associated Symptoms: Nausea and vomiting otherwise negative Narrative Narrative: Patient is a 28-year-old female who presents with nausea vomiting couple days ago. She states she has vomited numerous times. She denies blood or coffee- ground appearing emesis. She denies fever, chills night sweats. She has remote history of H. pylori. She denies history of cyclic vomiting. She denies use of marijuana. She denies diarrhea. She denies dysuria, frequency, urgency or hematuria. She is status post appendectomy. She denies history of partial bowel obstruction. The pain does not radiate. Is described as a sharp discomfort. There are no alleviating, precipitating or exacerbating factors. There is no history of trauma. She denies cardiac respiratory symptoms. Review of prior records indicates patient has IBS. Prior similar symptoms: Yes Recent Illness/Hospitalization: No [facility] Medical History Helicobacter pylori (H. pylori) Hernia IBS (irritable bowel syndrome) Ovarian cyst Home Medications dicyclomine 10 mg capsule 20 mg (2 x 10 mg) PO TIDAC #20 CAPSULES 05/12/22 [Rx Last Taken Unknown] promethazine 25 mg rectal suppository (Promethegan) 25 mg RECTAL Q6H PRN PRN Nausea ##6 05/14/22 [Rx Last Taken Unknown] promethazine 25 mg tablet 25 mg PO Q6H PRN nausea and vomiting 09/05/23 [History Last Taken 09/05/23 07:00] dicyclomine 20 mg tablet 20 mg PO TID 11/16/23 [History Last Taken Unknown] omeprazole 20 mg capsule,delayed release 20 mg PO Q8H 11/16/23 [History Last Taken Unknown] ondansetron 8 mg disintegrating tablet 8 mg PO Q8H 11/16/23 [History Last Taken Unknown] oxycodone-acetaminophen 5 mg-325 mg tablet (Percocet) 1 tab PO Q8H PRN pain 3 days #8 tabs 11/16/23 [Rx Last Taken Unknown] pantoprazole 40 mg tablet,delayed release 40 mg PO Q12H 11/16/23 [History Last Taken Unknown] promethazine 25 mg rectal suppository 25 mg ID Q6H PRN nausea and vomiting #12 ea 11/16/23 [Rx Last Taken Unknown] sucralfate 1 gram tablet 1 g PO TID 11/16/23 [History Last Taken Unknown] tenapanor 50 mg tablet (Ibsrela) 50 mg PO BID 11/16/23 [History Last Taken Unknown] Allergy/AdvReac Type Severity Reaction Status Date / Time erythromycin base Allergy Hives Verified 11/16/23 18:13 Surgical History History of appendectomy Social History household members: friend(s) Smoking Status: Current every day smoker tobacco type: e-cigarettes alcohol intake: current substance use type: marijuana ROS ROS ED Constitutional Constitutional ED: Denies chills, fever(s) or subjective Eyes Eyes: Denies blurry vision or change in vision ENT ENT ED: Denies ear pain, rhinorrhea or sore throat Cardiovascular Cardiovascular: Denies chest pain or palpitations Respiratory/Chest Respiratory/Chest: Denies cough, dyspnea or dyspnea on exertion Gastrointestinal Gastrointestinal: Reports abdominal pain, nausea and vomiting; Denies constipation, diarrhea or melena Genitourinary Genitourinary ED: Denies dysuria, hematuria or urinary frequency Musculoskeletal Musculoskeletal: Denies arthralgias, back pain, myalgias or neck pain Integumentary Denies rash Neurologic Neurologic: Denies headache(s) or weakness Endocrine Endocrinology: Denies cold intolerance or heat intolerance Hematologic/Lymphatic Hematologic/Lymphatic: Reports systems reviewed and no addt'l complaints, except as documented EXAM Physical Exam Const Vital Signs: 01/06/24 09:04 01/06/24 10:59 01/06/24 12:00 Temperature 97.4 F L Temperature Source Axillary Pulse Rate 94 89 100 Respiratory Rate 18 16 17 Blood Pressure 171/91 H 140/93 H 144/96 H Blood Pressure Mean 117 108 112 Pulse Ox 96 98 98 Oxygen Delivery Method Room Air Room Air Positive well nourished and well developed Constitutional Narrative: Patient has emesis bag. There is emesis in the bag. There is no blood or coffee grounds noted. She appears uncomfortable. General Appearance ED: well developed and pallor; Negative for cyanotic, diaphoretic or NAD HEENT Reports dry mucous membranes HEENT Narrative: Head is atraumatic normocephalic. Ears normal. Nares patent. Posterior pharynx is normal. Mouth ED: Yes dry mucous membranes Mouth: dry mucous membranes Eyes PERRL and EOMs intact bilaterally General Eye ED: Negative for pale conjunctiva or scleral icterus Neck no lymphadenopathy, supple and no JVD Chest Wall inspection of chest normal and palpation of chest normal Resp normal respiratory effort and clear to auscultation bilaterally Cardio regular rate, regular rhythm, S1 normal heart sound, S2 normal heart sound and no murmurs GI no masses; Negative for non-tender, non-distended or hepatosplenomegaly GI Narrative: There is slight tympany to percussion. Auscultation: hypoactive bowel sounds Palpation: soft and tender LUQ and RUQ; Negative for guarding, splenomegaly, mass or rebound tenderness present Back/Spine no CVA tenderness Extremity normal to inspection Neuro oriented x3 and CN's II-XII intact bilaterally Sensorium / Orientation: alert Psych Mood & Affect: anxious Skin no rashes or lesions noted, no wounds and skin turgor normal General Skin Exam: elasticity normal and pallor; Negative for jaundice MDM MDM MDM Narrative Medical decision making narrative: This could represent viral illness, irritable bowel syndrome, viral illness, hepatic/biliary disease, pancreatitis. IV was established. 1 L normal saline was ordered. Zofran was ordered for her nausea and vomiting. She also will receive 2 mg of morphine for her discomfort. Appropriate blood work was obtained. History & Record Review Additional record(s) reviewed:: Prior outpatient record (Treatment at multiple ERs for nausea vomiting abdominal pain.), Prior ED visit and Prior labs (Prior talk screen is positive for cannabinoids. Suspect this is cannabis hyperemesis syndrome especially in light of her multiple visits at other ERs.) Lab Data Attestation: I reviewed the patient's lab results. Lab results narrative: CBC reveals a H&H 7.2 and 34.2. This is slightly elevated from baseline. Basic metabolic panel reveals slight elevation in glucose of 118 with normal CO2 anion gap. Transaminases and lipase are both normal. Labs: Laboratory Results - last 24 hr 01/06/24 09:18 WBC 9.3 RBC 4.04 L Hgb 11.2 L Hct 34.2 L MCV 84.7 MCH 27.7 MCHC 32.7 RDW Std Deviation 41.7 RDW Coeff of Marcel 13.4 Plt Count 293 MPV 9.6 Immature Gran % (Auto) 0.400 Neut % (Auto) 79.4 H Lymph % (Auto) 17.0 L [place] % (Auto) 2.8 Eos % (Auto) 0.0 Baso % (Auto) 0.4 Absolute Neuts (auto) 7.4 Absolute Lymphs (auto) 1.58 Nucleated RBC % 0 Sodium 139 Potassium 3.4 L Chloride 107 Carbon Dioxide 24.0 Anion Gap 8 BUN 15 Creatinine 0.97 Estim Creat Clear Calc 71.43 Est GFR (MDRD) Af Amer 87 Est GFR (MDRD) Non-Af 72 BUN/Creatinine Ratio 15.4 Glucose 118 H Calcium 9.4 Total Bilirubin 0.40 AST 15 ALT 19 Alkaline Phosphatase 52 Total Protein 7.8 Albumin 4.4 Globulin 3.4 Albumin/Globulin Ratio 1.3 Lipase 25 Treatment and Re-Evaluation :: Patient has visited many local emergency room for similar complaints. She made comment that she has been treated with something similar to Haldol for her nausea and vomiting. In light of this information the fact that she stood in the shower with water on her abdomen raises concern that this is due to marijuana. She however, denies use of marijuana. Comments:: Note from nurse was noted the patient requesting pain medicine. Bentyl was ordered. Discharge Plan Triage Chief Complaint: Nausea/Vomiting ED Provider: Remington Calhoun Dx/Rx/DC Orders Clinical Impression: Cannabis hyperemesis syndrome concurrent with and due to cannabis dependence, Elevated blood-pressure reading, without diagnosis of hypertension Instructions: Cannabinoid Hyperemesis Syndrome, ED Hypertension, To Be Confirmed Prescriptions: No Action dicyclomine 10 mg capsule 20 mg PO TIDAC Qty: 20 0RF promethazine [Promethegan] 25 mg suppository 25 mg RECTAL Q6H PRN PRN (Reason: Nausea) Qty: 6 0RF promethazine 25 mg tablet 25 mg PO Q6H PRN (Reason: nausea and vomiting) Ibsrela 50 mg tablet 50 mg PO BID Patient Comments: TAKE 1 TABLET BY MOUTH TWICE A DAY IMMEDIATELY BEFORE MEALS sucralfate 1 gram tablet 1 g PO TID Patient Comments: take 1 tablet by mouth three times a day pantoprazole 40 mg tablet,delayed release (DR/EC) 40 mg PO Q12H Patient Comments: take 1 tablet by mouth twice a day TAKE ON EMPTY STOMACH AT LEAST 30 MINUTES BEFORE EATING ondansetron 8 mg tablet,disintegrating 8 mg PO Q8H omeprazole 20 mg capsule,delayed release(DR/EC) 20 mg PO Q8H Patient Comments: take 1 capsule by mouth every morning and every evening before meals dicyclomine 20 mg tablet 20 mg PO TID Patient Comments: take 1 tablet by mouth three times a day if needed for abdominal pain promethazine 25 mg suppository 25 mg ID Q6H PRN (Reason: nausea and vomiting) Qty: 12 0RF oxycodone-acetaminophen [Percocet] 5-325 mg tablet 1 tab PO Q8H PRN (Reason: pain) 3 Days Qty: 8 0RF Primary Care Provider: Antony Trevino Referrals: Antony Trevino DO [Primary Care Provider] - [facility] [Non-Staff] - As soon as possible Activity Restrictions/Additional Instructions: In my opinion your abdominal pain with nausea and vomiting is due to cannabis use/abuse. You need to discontinue using marijuana or cannabis products for a month to determine if there is is the cause or not. As previously written in my opinion this is due to your marijuana use. Disposition Disposition: Home, Self Care
[2024-01-06] MEDS: 0.9% Normal Saline (1000mL) 1,000 ML 1000 ML IV (09:20)
[2024-01-06] MEDS: Ondansetron 4 MG/2 ML Vial IV (09:20)
[2024-01-06] MEDS: Morphine 2 MG/ML Syringe IV (09:21)
[2024-01-06 09:29] LABS: Absolute Lymphocyte Count 1.58 X10^3/uL (0.83-4.51); Absolute Neutrophil Count 7.4 X10^3/uL (2.0-7.7); Basophil# 0.04 X10^3/uL; Basophil% 0.4 % (0-1); Hematocrit 34.2 % (37-47); Hemoglobin 11.2 g/dL (12.0-15.0); Lymphocyte # 1.58 X10^3/ul (0.83-4.51); Mean Corp Hgb Conc 32.7 g/dL (32-36); Mean Corpuscular Hgb 27.7 pg (27.0-32.0); Mean Corpuscular Volume 84.7 fL (81-99); Mean Platelet Vol. 9.6 fl (6.2-12.0); Monocyte# 0.26 X10^3/uL; Monocyte% 2.8 % (0-10); NRBC Flagged by Analyzer 0 % (0-5); Neutrophil # 7.37 X10^3/uL (2.7-7.7); Neutrophil % 79.4 % (47-70); Platelet Count 293 K/mm3 (150-450); RBC Distribution Width CV 13.4 % (11.6-14.6); RBC Distribution Width SD 41.7 fl (35.1-43.9); Red Blood Count 4.04 M/mm3 (4.2-5.4); White Blood Count 9.3 K/mm3 (4.4-11.0)
[2024-01-06 09:49] LABS: ALB/GLOB Ratio 1.3 RATIO (0.9-2.4); AST(SGOT) 15 U/L (15-37); Alanine Aminotransfer ALT/SGPT 19 U/L (13-56); Albumin, Serum 4.4 g/dL (3.2-5.0); Alkaline Phosphatase 52 U/L (45-117); Anion Gap 8 (5-15); BUN 15 mg/dL (7-18); BUN/Creat Ratio 15.4 RATIO (10-20); Calcium,Total 9.4 mg/dL (8.5-10.1); Chloride 107 mmol/L (98-107); Creatinine, Serum 0.97 mg/dL (0.55-1.02); EST Glomerular Filtration Rate 72 mL/min (>60); Est Glom Filt Rate - Afr Amer 87 mL/min (>60); Estimated Creatinine Clearance 71.43 ml/min; Globulin 3.4 g/dL (2.2-4.2); Glucose 118 mg/dL (74-106); Lipase 25 U/L (13-75); Potassium 3.4 mmol/L (3.5-5.1); Protein, Total 7.8 g/dL (6.4-8.2); Sodium Level 139 mmol/L (136-145)
[2024-01-06 10:59] VITALS: BP 140/93; PULSE 89; RESP 16; O2SAT 98
[2024-01-06] MEDS: Dicyclomine 10 MG Capsule 20 MG PO (11:25)
[2024-01-06 12:00] VITALS: BP 144/96; PULSE 100; RESP 17; O2SAT 98
--- NOTE | 2024-01-06 12:08 | ED.RN ---
PT AMBULATED TO THE BR WITH STEADY GAIT. GOT BACK TO ROOM AND STARTED THE LOUD DRY HEAVING, ENCOURAGED PT TO SMELL THE ALCOHOL PAD AND EDUCATED ON THE NEGATIVE EFFECTS OF THE FORCE SHES USING TO DRY HEAVE. PT THEN DECIDED TO TAKE THE ZOFRAN SHE HAS IN HER PURSE. PHYSICIAN AWARE
[2024-01-06 12:17] VITALS: BP 116/73; PULSE 88; RESP 16; TEMP 36.6; O2SAT 97
== END 2024-01-06 12:19 | disposition home or self-care (01) ==
PROVIDERS: Emergency Provider Emergency Medicine; PCP Family Medicine; Visit Provider Emergency Medicine
DX: R11.2 Nausea with vomiting, unspecified (principal); F12.20 Cannabis dependence, uncomplicated; R03.0 Elevated blood-pressure reading, without diagnosis of hypertension; R10.13 Epigastric pain; F17.290 Nicotine dependence, other tobacco product, uncomplicated; Z79.899 Other long term (current) drug therapy; Z90.89 Acquired absence of other organs
CPT/HCPCS: 80048; 80053; 83690; 85025; 96361; 96374; 96375; 99283; J2405

== ENCOUNTER 2024-05-04 08:02 | Emergency (ER) | payer MEDICAID, SELFPAY ==
[2024-05-04 08:03] VITALS: BP 122/94; PULSE 78; RESP 18; TEMP 36.9; O2SAT 99; BMI 21.7
--- NOTE | 2024-05-04 08:14 | CT_ITS ---
STUDY: CT ABDOMEN AND PELVIS WITH CONTRAST REASON FOR EXAM: Female, 28 years old. Mid abdominal pain with nausea and vomiting. RADIATION DOSAGE (If Supplied By Facility): CTDIvol = ( 12.45 ) mGy, DLP = ( 383.11 ) mGycm TECHNIQUE: Transaxial images were obtained from the dome of the diaphragm to the symphysis pubis without oral contrast. IV 100mL Isovue-300 was administered. Sagittal and coronal images were reconstructed. Individualized dose optimization techniques were used for this CT. COMPARISON: Comparison is made with prior study dated November 16, 2023. FINDINGS: The visualized lung bases are unremarkable. The visualized portions of the heart are within normal limits. Normal liver. Normal gallbladder and extrahepatic biliary system. Normal spleen. Normal pancreas. Normal bilateral adrenal glands. Normal right kidney. Normal left kidney. Normal visualized stomach. Normal small intestine. There are scattered colonic diverticula consistent with diverticulosis. There are surgical clips in the region of the appendix consistent with a prior appendectomy. Normal abdominal aorta. Normal inferior vena cava. Normal retroperitoneum. Normal urinary bladder. Small follicles are seen in the right ovary. Minimal amount of free fluid is seen in the cul-de-sac. The endometrium measures 13.8 mm. Please correlate with the patient''s menstrual phase. Normal abdominal wall. Normal osseous structures. CT/Abdomen/Pelvis W IV Cont ONLY IMPRESSION: Follicles are seen in the right ovary. Minimal amount of fluid in the cul-de-sac. Slightly thickened endometrium. Correlation with the patient''s menstrual cycle recommended. Electronically Signed: Jose Nguyen MD at 9:42 EDT ,
--- NOTE | 2024-05-04 08:15 | ED.VIS.GI ---
HPI HPI - GI History of Present Illness Chief Complaint: Abd Pain Detail of Chief Complaint: Abdominal pain Informant: patient Nausea/Vomiting/Emesis GI Symptom: Positive for Nausea and Vomiting Narrative Narrative: Patient presents to the emergency department complaint of abdominal pain that she has had over the last 3 days. She complains of intermittent episodes of severe vomiting. She denies diarrhea. She denies fever. She denies urinary symptoms. Patient has history of IBS. She tells me she has been late on her menstrual period and is 13 days late. Patient took a test 3 days ago that was negative. Patient has had prior appendectomy. She denies hematemesis or black tarry stool. Patient does smoke marijuana occasionally and her last smoking of marijuana was over 2 days ago. [facility] Medical History Helicobacter pylori (H. pylori) Hernia IBS (irritable bowel syndrome) Ovarian cyst Home Medications ?Medication ?Instructions ?Recorded ?Last Taken ?Type dicyclomine 10 mg capsule 20 mg (2 x 10 mg) PO TIDAC #20 05/12/22 Unknown Rx CAPSULES promethazine 25 mg rectal 25 mg RECTAL Q6H PRN PRN Nausea ##6 05/14/22 Unknown Rx suppository (Promethegan) promethazine 25 mg tablet 25 mg PO Q6H PRN nausea and 09/05/23 09/05/23 07:00 History vomiting dicyclomine 20 mg tablet 20 mg PO TID 11/16/23 Unknown History omeprazole 20 mg capsule,delayed 20 mg PO Q8H 11/16/23 Unknown History release ondansetron 8 mg disintegrating 8 mg PO Q8H 11/16/23 Unknown History tablet oxycodone-acetaminophen 5 mg-325 1 tab PO Q8H PRN pain 3 days #8 11/16/23 Unknown Rx mg tablet (Percocet) tabs pantoprazole 40 mg tablet,delayed 40 mg PO Q12H 11/16/23 Unknown History release promethazine 25 mg rectal 25 mg [place] Q6H PRN nausea and 11/16/23 Unknown Rx suppository vomiting #12 ea sucralfate 1 gram tablet 1 g PO TID 11/16/23 Unknown History tenapanor 50 mg tablet (Ibsrela) 50 mg PO BID 11/16/23 Unknown History dicyclomine 10 mg capsule 20 mg (2 x 10 mg) PO TIDAC #20 05/04/24 Unknown Rx CAPSULES ondansetron 4 mg disintegrating 4 mg PO Q8H PRN PRN Nausea #10 tabs 05/04/24 Unknown Rx tablet Allergy/AdvReac Type Severity Reaction Status Date / Time erythromycin base Allergy Hives Verified 05/04/24 08:44 Family History no significant family his Surgical History History of appendectomy Social History household members: friend(s) Smoking Status: Current every day smoker tobacco type: e-cigarettes alcohol intake: current substance use type: marijuana ROS ROS ED Review of Systems ROS Unobtainable: other Constitutional Constitutional ED: Reports lethargy; Denies chills, fever(s), sweats or weight loss Eyes Eyes: Denies blurry vision, change in vision or diplopia ENT ENT ED: Denies rhinorrhea or sore throat Cardiovascular Cardiovascular: Denies chest pain, orthopnea or racing heartbeat Respiratory/Chest Respiratory/Chest: Denies cough, dyspnea, dyspnea on exertion, orthopnea or sputum Gastrointestinal Gastrointestinal: Reports abdominal pain, nausea and vomiting; Denies diarrhea Genitourinary Genitourinary ED: Denies dysuria, hematuria or urinary frequency Musculoskeletal Musculoskeletal: Denies arthralgias, back pain, myalgias or neck pain Integumentary Denies abscess, Abrasions or rash Neurologic Neurologic: Denies headache(s) or weakness Psychiatric Psychiatric: Denies anxiety, depression or suicidal thoughts Endocrine Endocrinology: Denies polydipsia, polyphagia or polyuria Hematologic/Lymphatic Hematologic/Lymphatic: Denies easy bleeding, easy bruising or lymphadenopathy Allergic/Immunologic Allergic/Immunologic ED: Denies mouth swelling, tongue swelling or urticaria EXAM Physical Exam Const Vital Signs: 05/04/24 08:03 05/04/24 10:02 Temperature 98.5 F Temperature Source Temporal Pulse Rate 78 66 Respiratory Rate 18 18 Blood Pressure 122/94 H 136/93 H Blood Pressure Mean 103 107 Pulse Ox 99 99 Oxygen Delivery Method Room Air Room Air Positive well nourished and well developed General Appearance ED: well developed and NAD HEENT Reports TM's clear and moist mucous membranes normocephalic and atraumatic; Negative for trauma or tenderness Tympanic Membrane ED: Yes TM's clear Eyes PERRL and EOMs intact bilaterally General Eye ED: Negative for pale conjunctiva or scleral icterus Neck no lymphadenopathy, supple and no JVD General: Negative for tenderness Chest Wall inspection of chest normal and palpation of chest normal Chest: Negative for tenderness Resp normal respiratory effort and clear to auscultation bilaterally Effort and Inspection: Negative for respiratory distress or pain with movement Auscultation: Negative for rhonchi, wheezes or diminished lung sounds Cardio regular rate, regular rhythm, S1 normal heart sound, S2 normal heart sound and no murmurs Peripheral Pulses: pulses 2+ throughout GI normal to inspection, nondistended, normoactive bowel sounds, soft to palpation, non-distended and no masses; Negative for non-tender GI Narrative: Patient with some diffuse tenderness over the epigastric region with some guarding. There is no rebound, rigidity, or peritoneal signs. Negative Fish sign. Back/Spine no CVA tenderness and no thoracic nor lumbar tenderness Extremity normal to inspection General Extremety ED: Negative for edema General Extremity: Negative for edema Neuro oriented x3, CN's II-XII intact bilaterally, no sensory deficits noted and gait normal Sensorium / Orientation: awake, alert, oriented to person, oriented to place and oriented to time Motor Exam: strength 5/5 throughout and strength abnormal Psych mental status grossly normal Skin no rashes or lesions noted and no wounds MDM MDM MDM Narrative Medical decision making narrative: Patient presents with abdominal pain as well as nausea and vomiting for 3 days. History of THC use. She has had similar episodes in the past. IV line established. CBC with differential obtained showing a 10.8 with hemoglobin 11.8 and platelet count of 273. Chemistries unremarkable. LFTs were unremarkable. Urinalysis positive for nitrites and 5-10 WBCs with +3 bacteria however she had 10-25 squamous cells as well. She is asymptomatic. Will send off a culture. Patient had a CT scan of the abdomen pelvis that essentially did not show anything acute. Patient initially medicated with Reglan and morphine IV. She continued complaint of nausea and was given Zofran 4 mg IV. She was also given a milligram of Ativan. Patient continues to complain of abdominal discomfort and some nausea. I did order dicyclomine IM as well as another dose of morphine IV. Will also give Protonix IV bolus. Gave patient option for admission for intractable nausea and vomiting. Patient tells me that she has an appointment with her steamboat inspector today and just wants to feel little bit better so she can make her appointment and does not want to be admitted. After last dose of medication she was reevaluated she is feeling improved. She does not want to be admitted and wants to try to go home and shower and get to her appointment with her steamboat inspector today. Patient is advised to return if persistent vomiting, worsening pain, or condition worsening way. She is given a prescription for Zofran and Bentyl. Discharged home in stable condition. Lab Data Attestation: I reviewed the patient's lab results. Labs: Laboratory Results - last 24 hr 05/04/24 05/04/24 08:23 09:15 WBC 10.8 RBC 4.40 Hgb 11.8 L Hct 36.5 L MCV 83.0 MCH 26.8 L MCHC 32.3 RDW Std Deviation 38.5 RDW Coeff of Marcel 12.8 Plt Count 273 MPV 9.7 Immature Gran % (Auto) 0.400 Neut % (Auto) 72.7 H Lymph % (Auto) 21.5 [place] % (Auto) 4.4 Eos % (Auto) 0.4 Baso % (Auto) 0.6 Absolute Neuts (auto) 7.9 H Absolute Lymphs (auto) 2.33 Nucleated RBC % 0 Sodium 141 Potassium 3.4 L Chloride 109 H Carbon Dioxide 23.0 Anion Gap 9 BUN 21 H Creatinine 1.08 H Estim Creat Clear Calc 64.15 Est GFR (MDRD) Af Amer 77 Est GFR (MDRD) Non-Af 64 BUN/Creatinine Ratio 19.4 Glucose 107 H Calcium 9.2 Total Bilirubin 0.50 AST 20 ALT 19 Alkaline Phosphatase 54 Total Protein 7.9 Albumin 4.2 Globulin 3.7 Albumin/Globulin Ratio 1.1 Lipase 121 H Serum , Qual NEGATIVE Urine Color Yellow Urine Clarity Sl. Cloudy Urine pH 6.0 Ur Specific Baring 1.025 Urine Protein 30 H Urine Glucose (UA) Normal Urine Ketones 50 H Urine Occult Blood Negative Urine Nitrite Positive H Urine Bilirubin Negative Urine Urobilinogen Normal Ur Leukocyte Esterase 100 H Urine RBC 0 SEEN Urine WBC 5-10 SEEN Ur Squamous Epith Cells 10-25 SEEN Urine Bacteria 3+ Urine Mucus 2+ Radiography Diagnostic Testing: Clinical Impression(s) from Imaging Studies Abdomen/Pelvis CT 05/04/24 08:14 IMPRESSION: Follicles are seen in the right ovary. Minimal amount of fluid in the cul-de-sac. Slightly thickened endometrium. Correlation with the patient''s menstrual cycle recommended. Electronically Signed: Jose Nguyen MD at 9:42 EDT , Discharge Plan Triage Chief Complaint: Abd Pain ED Provider: Becky Ann Dx/Rx/DC Orders Clinical Impression: Abdominal pain, Vomiting Instructions: ED Abdominal Pain Unkn Cause Fem, ED Vomiting (Adult) Prescriptions: New ondansetron 4 mg tablet,disintegrating 4 mg PO Q8H PRN PRN (Reason: Nausea) Qty: 10 0RF dicyclomine 10 mg capsule 20 mg PO TIDAC Qty: 20 0RF No Action dicyclomine 10 mg capsule 20 mg PO TIDAC Qty: 20 0RF promethazine [Promethegan] 25 mg suppository 25 mg RECTAL Q6H PRN PRN (Reason: Nausea) Qty: 6 0RF promethazine 25 mg tablet 25 mg PO Q6H PRN (Reason: nausea and vomiting) Ibsrela 50 mg tablet 50 mg PO BID Patient Comments: TAKE 1 TABLET BY MOUTH TWICE A DAY IMMEDIATELY BEFORE MEALS sucralfate 1 gram tablet 1 g PO TID Patient Comments: take 1 tablet by mouth three times a day pantoprazole 40 mg tablet,delayed release (DR/EC) 40 mg PO Q12H Patient Comments: take 1 tablet by mouth twice a day TAKE ON EMPTY STOMACH AT LEAST 30 MINUTES BEFORE EATING ondansetron 8 mg tablet,disintegrating 8 mg PO Q8H omeprazole 20 mg capsule,delayed release(DR/EC) 20 mg PO Q8H Patient Comments: take 1 capsule by mouth every morning and every evening before meals dicyclomine 20 mg tablet 20 mg PO TID Patient Comments: take 1 tablet by mouth three times a day if needed for abdominal pain promethazine 25 mg suppository 25 mg [place] Q6H PRN (Reason: nausea and vomiting) Qty: 12 0RF oxycodone-acetaminophen [Percocet] 5-325 mg tablet 1 tab PO Q8H PRN (Reason: pain) 3 Days Qty: 8 0RF Primary Care Provider: Antony Trevino Referrals: Antony Trevino DO [Primary Care Provider] - Activity Restrictions/Additional Instructions: Please discontinue your marijuana usage as this can lead to bouts of hyperemesis. Print Language: Slovenian Disposition Disposition: Home, Self Care
[2024-05-04] MEDS: Morphine 4 MG/ML Syringe IV ×2 (08:24→10:26)
[2024-05-04] MEDS: Metoclopramide 10 MG/2 ML Vial IV (08:24)
[2024-05-04] MEDS: 0.9% Normal Saline (1000mL) 1,000 ML 125 ML IV (08:25)
[2024-05-04] MEDS: LORazepam 2 MG/ML Syringe 1 MG IV (08:29)
[2024-05-04 08:38] LABS: Absolute Lymphocyte Count 2.33 X10^3/uL (0.83-4.51); Absolute Neutrophil Count 7.9 X10^3/uL (2.0-7.7); Basophil# 0.07 X10^3/uL; Basophil% 0.6 % (0-1); Eosinophil# 0.04 X10^3/uL; Eosinophils% 0.4 % (0-5); Hematocrit 36.5 % (37-47); Hemoglobin 11.8 g/dL (12.0-15.0); Lymphocyte # 2.33 X10^3/ul (0.83-4.51); Lymphocyte % 21.5 % (19-41); Mean Corp Hgb Conc 32.3 g/dL (32-36); Mean Corpuscular Hgb 26.8 pg (27.0-32.0); Mean Platelet Vol. 9.7 fl (6.2-12.0); Monocyte# 0.48 X10^3/uL; Monocyte% 4.4 % (0-10); NRBC Flagged by Analyzer 0 % (0-5); Neutrophil # 7.87 X10^3/uL (2.7-7.7); Neutrophil % 72.7 % (47-70); Platelet Count 273 K/mm3 (150-450); RBC Distribution Width CV 12.8 % (11.6-14.6); RBC Distribution Width SD 38.5 fl (35.1-43.9); White Blood Count 10.8 K/mm3 (4.4-11.0)
--- NOTE | 2024-05-04 08:40 | ED.RN ---
WHEN ATTEMPTING TO PUT IV IN, PT STARTED YELLING/SCREAMING/PULLED ARM AWAY. THIS RN PROVIDED EMOTIONAL SUPPORT WHILE ANOTHER RN WAS ABLE TO PLACE IV
[2024-05-04 08:55] LABS: Internal QC Validated? YES +Cl - CLEAR BKGD
[2024-05-04 08:56] LABS: Pregnancy, Serum, hCG Quali. NEGATIVE Negative
[2024-05-04 09:02] LABS: ALB/GLOB Ratio 1.1 RATIO (0.9-2.4); AST(SGOT) 20 U/L (15-37); Alanine Aminotransfer ALT/SGPT 19 U/L (13-56); Albumin, Serum 4.2 g/dL (3.2-5.0); Alkaline Phosphatase 54 U/L (45-117); Anion Gap 9 (5-15); BUN 21 mg/dL (7-18); BUN/Creat Ratio 19.4 RATIO (10-20); Calcium,Total 9.2 mg/dL (8.5-10.1); Chloride 109 mmol/L (98-107); Creatinine, Serum 1.08 mg/dL (0.55-1.02); EST Glomerular Filtration Rate 64 mL/min (>60); Est Glom Filt Rate - Afr Amer 77 mL/min (>60); Estimated Creatinine Clearance 64.15 ml/min; Globulin 3.7 g/dL (2.2-4.2); Glucose 107 mg/dL (74-106); Lipase 121 U/L (13-75); Potassium 3.4 mmol/L (3.5-5.1); Protein, Total 7.9 g/dL (6.4-8.2); Sodium Level 141 mmol/L (136-145)
[2024-05-04] MEDS: Ondansetron 4 MG/2 ML Vial IV ×2 (09:16→10:43)
[2024-05-04 09:22] LABS: Red Blood Cells-Urine 0 SEEN /hpf (0-5)
[2024-05-04 09:44] LABS: Color, Urine Yellow (Yellow); Glucose, Dipstick Normal (Normal); Ketone-Dipstick 50 mg/dl (Negative); Leukocyte Esterase-Dipstick 100 /ul (Negative); Nitrite-Dipstick Positive (Negative); Occult Blood-Urine Negative /ul (Negative); Protein-Dipstick 30 mg/dl (Negative); Specific Gravity, Urine 1.025 (1.002-1.030); Urine Bilirubin Dipstick Negative (Negative); Urine Clarity Sl. Cloudy (Clear); Urine Urobilinogen Normal (Normal)
[2024-05-04 10:00] LABS: Bacteria 3+ /hpf (None Seen)
[2024-05-04 10:01] LABS: Mucous, Urine 2+ /hpf (<or=2+); Squamous Epithelial Cells - UA 10-25 SEEN /hpf (5-10); White Blood Cells 5-10 SEEN /hpf (0-5)
[2024-05-04 10:02] VITALS: BP 136/93; PULSE 66; RESP 18; O2SAT 99
[2024-05-04] MEDS: Dicyclomine 20 MG/2 ML Vial IM (10:26)
--- NOTE | 2024-05-04 10:37 | ED.RN ---
PT IN BED, ROCKING BACK AND FORTH - CONTINUOUSLY BURPING & OCCASIONALLY DRY HEAVING
--- NOTE | 2024-05-04 10:39 | ED.RN ---
PT HYPERVENTILATING, REMINDED MULTIPLE TIMES TO SLOW BREATH
[2024-05-04] MEDS: Pantoprazole Sodium 80 MG in 0.9% Normal Saline (50mL Bag) 15 ML 420 MG IV BOLUS (10:43)
[2024-05-04 11:02] VITALS: BP 132/90; PULSE 66; RESP 16; TEMP 36.6; O2SAT 99
== END 2024-05-04 11:13 | disposition home or self-care (01) ==
PROVIDERS: Emergency Provider Emergency Medicine; PCP Family Medicine; Visit Provider Emergency Medicine
DX: R10.9 Unspecified abdominal pain (principal); R11.2 Nausea with vomiting, unspecified; K58.9 Irritable bowel syndrome, unspecified; F17.210 Nicotine dependence, cigarettes, uncomplicated; F12.99 Cannabis use, unspecified with unspecified cannabis-induced disorder; Z79.899 Other long term (current) drug therapy
CPT/HCPCS: 74177; 80053; 81001; 83690; 84703; 85025; 87086; 87088; 87186; 96361; 96372; 96374; 96375; 96376; 99283; J7030; Q9967; A4216; J2405; J3490

== ENCOUNTER 2024-06-02 09:09 | Emergency (ER) | payer MEDICAID, SELFPAY ==
[2024-06-02 09:10] VITALS: BP 126/82; PULSE 84; RESP 22; TEMP 36; O2SAT 97; BMI 21.4
--- NOTE | 2024-06-02 09:25 | EDS_ITS ---
HPI History of Present Illness Chief Complaint: Abd Pain Informant: patient and EMS Narrative Narrative: 29-year-old female presenting to the emergency room with abdominal pain and vomiting. Patient states that she is late on her period. She was late on her period last month. She states that usually around the time of her period she develops abdominal pain and vomiting. She states that she has had the symptoms many times and is seeing many different emergency departments. She has a road supervisor out of town. She states her road supervisor does not know what is causing her symptoms and tells her that if she can control it with Bentyl that she is to come to the emergency room. Patient states she is not due to see her road supervisor until July. She states that ever since she was diagnosed with H. pylori she has had the symptoms. There is also a confounding history of cannabinoid use in the past. Patient denies any diarrhea or fevers. She denies any dysuria. The patient is flailing at times on the bed and screams her history at me. As I asked review of systems and historical questions she screams that it is abdominal pain and vomiting and nothing else. She notes a prior appendectomy but no other abdominal surgeries. [facility] Medical History Hernia Helicobacter pylori (H. pylori) IBS (irritable bowel syndrome) Ovarian cyst Home Medications ?Medication ?Instructions ?Recorded ?Last Taken ?Type dicyclomine 10 mg capsule 20 mg (2 x 10 mg) PO TIDAC #20 05/12/22 Unknown Rx CAPSULES promethazine 25 mg rectal 25 mg RECTAL Q6H PRN PRN Nausea ##6 05/14/22 Unknown Rx suppository (Promethegan) promethazine 25 mg tablet 25 mg PO Q6H PRN nausea and 09/05/23 09/05/23 07:00 History vomiting dicyclomine 20 mg tablet 20 mg PO TID 11/16/23 Unknown History omeprazole 20 mg capsule,delayed 20 mg PO Q8H 11/16/23 Unknown History release ondansetron 8 mg disintegrating 8 mg PO Q8H 11/16/23 Unknown History tablet oxycodone-acetaminophen 5 mg-325 1 tab PO Q8H PRN pain 3 days #8 11/16/23 Unknown Rx mg tablet (Percocet) tabs pantoprazole 40 mg tablet,delayed 40 mg PO Q12H 11/16/23 Unknown History release promethazine 25 mg rectal 25 mg [place] Q6H PRN nausea and 11/16/23 Unknown Rx suppository vomiting #12 ea sucralfate 1 gram tablet 1 g PO TID 11/16/23 Unknown History tenapanor 50 mg tablet (Ibsrela) 50 mg PO BID 11/16/23 Unknown History dicyclomine 10 mg capsule 20 mg (2 x 10 mg) PO TIDAC #20 05/04/24 Unknown Rx CAPSULES ondansetron 4 mg disintegrating 4 mg PO Q8H PRN PRN Nausea #10 tabs 05/04/24 Unknown Rx tablet promethazine 25 mg tablet 25 mg PO Q6H PRN PRN Nausea #15 06/02/24 Unknown Rx TABLETS Allergy/AdvReac Type Severity Reaction Status Date / Time erythromycin base Allergy Hives Verified 06/02/24 09:13 Surgical History History of appendectomy Social History household members: friend(s) Smoking Status: Current every day smoker tobacco type: e-cigarettes alcohol intake: current substance use type: marijuana ROS ROS ED Constitutional Constitutional ED: Denies chills, fever(s) or weight loss Eyes Eyes: Denies change in vision or diplopia ENT ENT ED: Denies ear pain, rhinorrhea or sore throat Cardiovascular Cardiovascular: Denies chest pain, orthopnea, palpitations or racing heartbeat Respiratory/Chest Respiratory/Chest: Denies cough, dyspnea or orthopnea Gastrointestinal Gastrointestinal: Reports abdominal pain, nausea and vomiting; Denies diarrhea Genitourinary Genitourinary ED: Denies dysuria, hematuria or urinary frequency Musculoskeletal Musculoskeletal: Denies arthralgias or myalgias Integumentary Denies abscess or rash Neurologic Neurologic: Denies headache(s) or weakness Psychiatric Psychiatric: Denies anxiety, depression, suicidal ideation or suicidal thoughts Endocrine Endocrinology: Denies polydipsia, polyphagia or polyuria Allergic/Immunologic Allergic/Immunologic ED: Denies mouth swelling, tongue swelling or urticaria EXAM Physical Exam Narrative Exam Narrative: Patient writhing and flailing on the bed. She has belching. Const Vital Signs: 06/02/24 09:10 06/02/24 11:09 Temperature 96.8 F L Temperature Source Temporal Pulse Rate 84 90 Respiratory Rate 22 H 18 Blood Pressure 126/82 H 140/68 H Blood Pressure Mean 96 92 Pulse Ox 97 100 Oxygen Delivery Method Room Air Positive well nourished and well developed General Appearance ED: well developed HEENT Reports normocephalic, head/scalp atraumatic and moist mucous membranes Eyes PERRL and EOMs intact bilaterally Neck no lymphadenopathy, supple and no JVD Resp normal respiratory effort and clear to auscultation bilaterally Cardio regular rate, regular rhythm and no murmurs GI GI Narrative: The abdomen is diffusely tender to palpation. The abdomen is soft. Inspection: Negative for abdominal distention Auscultation: normoactive bowel sounds Palpation: soft Back/Spine no CVA tenderness and normal ROM Extremity normal to inspection General Extremety ED: Negative for edema General Extremity: Negative for edema Neuro oriented x3 and CN's II-XII intact bilaterally Sensorium / Orientation: alert Motor Exam: strength 5/5 throughout Psych mental status grossly normal Mood & Affect: Negative for depressed or tearful Skin no rashes or lesions noted and no wounds MDM MDM MDM Narrative Medical decision making narrative: Differential diagnosis includes but not limited to pancreatitis gastroenteritis cyclic vomiting syndrome biliary colic small bowel obstruction IBS Basic blood work as shown a white count of 10.7 hemoglobin of 11. Lipase is normal LFTs normal BUN 22 creatinine 0.98 potassium slightly low at 3.3. Patient received IV fluids as well as Thorazine Benadryl. She states she has a mild amount of discomfort in the abdomen still but the nausea vomiting is better. She states Phenergan works best at home and she is out of will write her for some Phenergan. She should follow-up with gastroenterology. I believe at this point given her multiple repeat visits for similar episodes this is probably a cyclic vomiting syndrome but would encourage her to keep following with gastroenterology for formal diagnosis. History & Record Review Discussion w/independent historian: Patient Lab Data Attestation: I reviewed the patient's lab results. Labs: Laboratory Results - last 24 hr 06/02/24 09:10 WBC 10.7 RBC 4.07 L Hgb 11.0 L Hct 33.3 L MCV 81.8 MCH 27.0 MCHC 33.0 RDW Std Deviation 38.8 RDW Coeff of Marcel 13.0 Plt Count 265 MPV 9.7 Immature Gran % (Auto) 0.200 Neut % (Auto) 73.8 H Lymph % (Auto) 19.9 [place] % (Auto) 4.7 Eos % (Auto) 0.8 Baso % (Auto) 0.6 Absolute Neuts (auto) 7.9 H Absolute Lymphs (auto) 2.12 Nucleated RBC % 0 Sodium 140 Potassium 3.3 L Chloride 111 H Carbon Dioxide 22.0 Anion Gap 7 BUN 22 H Creatinine 0.98 Estim Creat Clear Calc 70.07 Est GFR (MDRD) Af Amer 87 Est GFR (MDRD) Non-Af 72 BUN/Creatinine Ratio 22.5 H Glucose 113 H Calcium 9.4 Total Bilirubin 0.70 Direct Bilirubin 0.14 AST 13 L ALT 21 Alkaline Phosphatase 52 Total Protein 7.3 Albumin 4.0 Globulin 3.3 Lipase 47 Serum , Qual NEGATIVE Discharge Plan Triage Chief Complaint: Abd Pain ED Provider: Slade Conti Dx/Rx/DC Orders Clinical Impression: Abdominal pain, Cyclic vomiting syndrome Instructions: ED Cyclic Vomiting Syndrome Prescriptions: New promethazine 25 mg tablet 25 mg PO Q6H PRN PRN (Reason: Nausea) Qty: 15 0RF No Action dicyclomine 10 mg capsule 20 mg PO TIDAC Qty: 20 0RF promethazine [Promethegan] 25 mg suppository 25 mg RECTAL Q6H PRN PRN (Reason: Nausea) Qty: 6 0RF promethazine 25 mg tablet 25 mg PO Q6H PRN (Reason: nausea and vomiting) Ibsrela 50 mg tablet 50 mg PO BID Patient Comments: TAKE 1 TABLET BY MOUTH TWICE A DAY IMMEDIATELY BEFORE MEALS sucralfate 1 gram tablet 1 g PO TID Patient Comments: take 1 tablet by mouth three times a day pantoprazole 40 mg tablet,delayed release (DR/EC) 40 mg PO Q12H Patient Comments: take 1 tablet by mouth twice a day TAKE ON EMPTY STOMACH AT LEAST 30 MINUTES BEFORE EATING ondansetron 8 mg tablet,disintegrating 8 mg PO Q8H omeprazole 20 mg capsule,delayed release(DR/EC) 20 mg PO Q8H Patient Comments: take 1 capsule by mouth every morning and every evening before meals dicyclomine 20 mg tablet 20 mg PO TID Patient Comments: take 1 tablet by mouth three times a day if needed for abdominal pain promethazine 25 mg suppository 25 mg CA Q6H PRN (Reason: nausea and vomiting) Qty: 12 0RF oxycodone-acetaminophen [Percocet] 5-325 mg tablet 1 tab PO Q8H PRN (Reason: pain) 3 Days Qty: 8 0RF ondansetron 4 mg tablet,disintegrating 4 mg PO Q8H PRN PRN (Reason: Nausea) Qty: 10 0RF dicyclomine 10 mg capsule 20 mg PO TIDAC Qty: 20 0RF Primary Care Provider: Antony Trevino Referrals: Antony Trevino DO [Primary Care Provider] - As Needed Activity Restrictions/Additional Instructions: Please follow-up with your road supervisor Print Language: Lithuanian Disposition Disposition: Home, Self Care
[2024-06-02 09:28] LABS: Absolute Lymphocyte Count 2.12 X10^3/uL (0.83-4.51); Absolute Neutrophil Count 7.9 X10^3/uL (2.0-7.7); Basophil# 0.06 X10^3/uL; Basophil% 0.6 % (0-1); Eosinophil# 0.09 X10^3/uL; Eosinophils% 0.8 % (0-5); Hematocrit 33.3 % (37-47); Lymphocyte # 2.12 X10^3/ul (0.83-4.51); Lymphocyte % 19.9 % (19-41); Mean Corpuscular Volume 81.8 fL (81-99); Mean Platelet Vol. 9.7 fl (6.2-12.0); Monocyte% 4.7 % (0-10); NRBC Flagged by Analyzer 0 % (0-5); Neutrophil # 7.86 X10^3/uL (2.7-7.7); Neutrophil % 73.8 % (47-70); Platelet Count 265 K/mm3 (150-450); RBC Distribution Width SD 38.8 fl (35.1-43.9); Red Blood Count 4.07 M/mm3 (4.2-5.4); White Blood Count 10.7 K/mm3 (4.4-11.0)
[2024-06-02 09:40] LABS: Internal QC Validated? YES +Cl - CLEAR BKGD; Pregnancy, Serum, hCG Quali. NEGATIVE Negative
[2024-06-02 09:47] LABS: AST(SGOT) 13 U/L (15-37); Alanine Aminotransfer ALT/SGPT 21 U/L (13-56); Alkaline Phosphatase 52 U/L (45-117); Anion Gap 7 (5-15); BUN 22 mg/dL (7-18); BUN/Creat Ratio 22.5 RATIO (10-20); Bilirubin, Direct 0.14 mg/dL (0.00-0.30); Calcium,Total 9.4 mg/dL (8.5-10.1); Chloride 111 mmol/L (98-107); Creatinine, Serum 0.98 mg/dL (0.55-1.02); EST Glomerular Filtration Rate 72 mL/min (>60); Est Glom Filt Rate - Afr Amer 87 mL/min (>60); Estimated Creatinine Clearance 70.07 ml/min; Globulin 3.3 g/dL (2.2-4.2); Glucose 113 mg/dL (74-106); Lipase 47 U/L (13-75); Potassium 3.3 mmol/L (3.5-5.1); Protein, Total 7.3 g/dL (6.4-8.2); Sodium Level 140 mmol/L (136-145)
[2024-06-02] MEDS: DiphenhydrAMINE 50 MG, ChlorproMAZINE IM 25 MG in 0.9% Normal Saline (100mL Bag) 100 ML 204 MG IV (10:06)
[2024-06-02] MEDS: 0.9% Normal Saline (1000mL) 1,000 ML 1000 ML IV (10:06)
[2024-06-02 11:09] VITALS: BP 140/68; PULSE 90; RESP 18; O2SAT 100
[2024-06-02 12:06] VITALS: BP 134/90; PULSE 88; RESP 18; TEMP 36.6; O2SAT 99
== END 2024-06-02 12:07 | disposition home or self-care (01) ==
PROVIDERS: Emergency Provider Emergency Medicine; PCP Family Medicine; Visit Provider Emergency Medicine
DX: R11.15 Cyclical vomiting syndrome unrelated to migraine (principal); R10.9 Unspecified abdominal pain; F17.290 Nicotine dependence, other tobacco product, uncomplicated; Z90.49 Acquired absence of other specified parts of digestive tract
CPT/HCPCS: 80048; 80076; 83690; 84703; 85025; 96365; 99283; J7030; A4216

== ENCOUNTER 2024-08-06 08:39 | Emergency (ER) | payer MEDICAID, SELFPAY ==
[2024-08-06 08:40] VITALS: BP 147/97; PULSE 81; RESP 18; TEMP 36.4; BMI 22.8
[2024-08-06] MEDS: Lidocaine 2% Viscous15 ML UDC 15 ML PO (09:15)
[2024-08-06] MEDS: Ketorolac 15 MG/ML Vial IV (09:15)
[2024-08-06] MEDS: Mag Hydrox/Al Hydrox/Simeth 30 ML UDC PO (09:15)
[2024-08-06] MEDS: Ondansetron 4 MG/2 ML Vial IV (09:16)
[2024-08-06] MEDS: Metoclopramide 10 MG/2 ML Vial IV (09:17)
[2024-08-06] MEDS: Famotidine 200 MG/20 ML MDV 20 MG in 0.9% Normal Saline (Pres. free 8 ML 300 MG IV (09:17)
[2024-08-06] MEDS: Dicyclomine 20 MG/2 ML Vial IM (09:18)
[2024-08-06 09:29] LABS: Mucous, Urine 0 SEEN /hpf (<or=2+)
--- NOTE | 2024-08-06 09:30 | EX.ED.DYSGE1 ---
HPI History of Present Illness Chief Complaint: Abd Pain Narrative Narrative: Patient is a 29-year-old female who is presenting to the ER today with chief complaint of intractable nausea, vomiting, midepigastric discomfort, and upper abdominal pain. Patient lives at home with her mother. Patient stated that she felt fine when she went to bed last night. Patient has a history of acid reflux. Patient states that she smokes marijuana occasionally. Patient denies any other illicit drug use including meth, ectasy, ibuprofen, Xanax, benzos, and states she is going through no withdrawal from any type of medication at this time. Patient has no headache, no fever or chills. No chest pain or shortness of breath. Patient does have urinary frequency urgency or burning. Patient currently on her menses. Patient think she may have a UTI. Patient states she does take acid reflux medication daily, she does not know what she takes. Patient has no other acute complaints. [facility] Medical History Hernia Helicobacter pylori (H. pylori) IBS (irritable bowel syndrome) Ovarian cyst Home Medications ?Medication ?Instructions ?Recorded ?Last Taken ?Type dicyclomine 10 mg capsule 20 mg (2 x 10 mg) PO TIDAC #20 05/12/22 Unknown Rx CAPSULES promethazine 25 mg rectal 25 mg RECTAL Q6H PRN PRN Nausea ##6 05/14/22 Unknown Rx suppository (Promethegan) promethazine 25 mg tablet 25 mg PO Q6H PRN nausea and 09/05/23 09/05/23 07:00 History vomiting dicyclomine 20 mg tablet 20 mg PO TID 11/16/23 Unknown History omeprazole 20 mg capsule,delayed 20 mg PO Q8H 11/16/23 Unknown History release ondansetron 8 mg disintegrating 8 mg PO Q8H 11/16/23 Unknown History tablet oxycodone-acetaminophen 5 mg-325 1 tab PO Q8H PRN pain 3 days #8 11/16/23 Unknown Rx mg tablet (Percocet) tabs pantoprazole 40 mg tablet,delayed 40 mg PO Q12H 11/16/23 Unknown History release promethazine 25 mg rectal 25 mg [place] Q6H PRN nausea and 11/16/23 Unknown Rx suppository vomiting #12 ea sucralfate 1 gram tablet 1 g PO TID 11/16/23 Unknown History tenapanor 50 mg tablet (Ibsrela) 50 mg PO BID 11/16/23 Unknown History dicyclomine 10 mg capsule 20 mg (2 x 10 mg) PO TIDAC #20 05/04/24 Unknown Rx CAPSULES ondansetron 4 mg disintegrating 4 mg PO Q8H PRN PRN Nausea #10 tabs 05/04/24 Unknown Rx tablet promethazine 25 mg tablet 25 mg PO Q6H PRN PRN Nausea #15 06/02/24 Unknown Rx TABLETS cephalexin 500 mg capsule 500 mg PO Q12 #14 CAPSULES 08/06/24 Unknown Rx Allergy/AdvReac Type Severity Reaction Status Date / Time erythromycin base Allergy Hives Verified 06/02/24 09:13 Surgical History History of appendectomy Social History household members: friend(s) Smoking Status: Current every day smoker tobacco type: e-cigarettes alcohol intake: current substance use type: marijuana ROS ROS ED ROS Narrative REVIEW OF SYSTEMS: Unless otherwise stated in this report the patient's positive and negative responses for review of systems for constitutional, eyes, ENT, cardiovascular, respiratory, gastrointestinal, neurological, , musculoskeletal, and integument systems and related systems to the presenting problem are either stated in the history of present illness or were not pertinent or were negative for the symptoms and/or complaints related to the presenting medical problem. EXAM Physical Exam Narrative Exam Narrative: Vital signs reviewed and patient is not hypoxic. General: The patient appears well and in no apparent distress. Patient is resting comfortably on cart. Not toxic, lethargic, or listless. Skin: Warm, dry, no pallor noted. There is no rash noted. Head: Normocephalic, atraumatic Eye: Normal conjunctiva, no drainage, EOMI. PERRL. Ears, Nose, Mouth, and Throat: oral mucosa is moist. Nares patent. Mouth without vesicles. Cardiovascular: Regular Rate and Rhythm, no murmurs, gallops, or rubs Respiratory: Patient is in no distress, no accessory muscle use, lungs are clear to auscultation, no wheezing, rales or rhonchi Back: non-tender, no CVA tenderness bilaterally to percussion. NO CTLS midline or paraspinal tenderness to palpation. GI: Soft, moderate midepigastric tenderness to palpation, mild right upper quadrant and left upper quadrant tenderness to palpation, no peritoneal signs, no flank pain bilateral, no rash, mild suprapubic tenderness palpation. No peritoneal signs, otherwise tenderness to palpation, no masses appreciated. No rebound, guarding, or rigidity noted. Musculoskeletal: The patient has full range of motion of all extremities and joints with no difficulty. Patient has no motor, no sensory deficits. Neurological: A&O x4, normal speech, no focal neurological deficits. Psychiatric: Cooperative Const Vital Signs: 08/06/24 08:40 08/06/24 10:39 Temperature 97.5 F L Temperature Source Oral Pulse Rate 81 Respiratory Rate 18 98 H Blood Pressure 147/97 H 125/120 H Blood Pressure Mean 113 121 Pulse Ox 97 Oxygen Delivery Method Room Air MDM MDM MDM Narrative Medical decision making narrative: Patient had IV medication given including Pepcid, Toradol, Bentyl, Zofran and Reglan. Lab work has been done as well. 1120 patient has signed out AGAINST MEDICAL ADVICE and wants to leave AGAINST MEDICAL ADVICE. Patient does not want to drink any potassium. Patient is not willing to stay for additional antiemetics. Patient does not want treatment tablet at this time for UTI, prescription will be sent into the pharmacy. Patient is upset that she still has nausea. Education on cyclic nausea and vomiting marijuana abuse was done at bedside. Patient does not want a wait for her discharge papers. The patient is oriented to person, place, and time, demonstrating all morrison elements of capacity to make decisions regarding the medical care offered. The patient speaks coherently and exhibits no evidence of having an altered level of consciousness or alcohol or drug intoxication to a point that would impair ability to delineate a choice. He/she is able to ambulate without difficulty. The patient demonstrates understanding and appreciation of the relevant information of the nature their medical condition, as well as the risks, benefits, and treatment alternatives (including nontreatment), Consequences of refusing care, and can appropriately communicative rational reasoning about their choice of care options. Patient is aware of a suspected diagnosis suggested by history and exam. The risks of refusing recommended care that were disclosed and acknowledged by the patient including , unforeseen complications, neurological dysfunction, permanent mental impairment, loss of limb, loss of sexual function, loss of current lifestyle, worsening chronic condition, long-term disability were disclosed. The patient understands they are welcome to return to the hospital anytime to receive the recommended care or any other care at any time, regardless of their ability to pay for such care. Discharge instructions were provided to the patient along with necessary prescriptions if indicated. Lab Data Attestation: I reviewed the patient's lab results. Labs: Laboratory Results - last 24 hr 08/06/24 08/06/24 09:22 09:25 WBC 9.9 RBC 4.06 L Hgb 11.2 L Hct 34.4 L MCV 84.7 MCH 27.6 MCHC 32.6 RDW Std Deviation 41.6 RDW Coeff of Marcel 13.3 Plt Count 289 MPV 9.8 Immature Gran % (Auto) 0.500 Neut % (Auto) 69.7 Lymph % (Auto) 24.3 [place] % (Auto) 4.4 Eos % (Auto) 0.5 Baso % (Auto) 0.6 Absolute Neuts (auto) 6.9 Absolute Lymphs (auto) 2.41 Nucleated RBC % 0 Sodium 142 Potassium 3.3 L Chloride 112 H Carbon Dioxide 23.0 Anion Gap 7 BUN 22 H Creatinine 1.00 Estim Creat Clear Calc 68.67 Est GFR (MDRD) Af Amer 85 Est GFR (MDRD) Non-Af 70 BUN/Creatinine Ratio 22.1 H Glucose 130 H Calcium 9.1 Total Bilirubin 0.30 AST 15 ALT 20 Alkaline Phosphatase 50 Total Protein 7.2 Albumin 4.2 Globulin 3.0 Albumin/Globulin Ratio 1.4 Lipase 54 Urine Color Yellow Urine Clarity Sl. Cloudy Urine pH 8.0 Ur Specific [place] 1.010 Urine Protein 30 H Urine Glucose (UA) Normal Urine Ketones 5 H Urine Occult Blood 250 H Urine Nitrite Positive H Urine Bilirubin Negative Urine Urobilinogen Normal Ur Leukocyte Esterase 25 H Urine RBC 0-5 SEEN Urine WBC 0-5 SEEN Ur Squamous Epith Cells 0-5 SEEN Urine Bacteria 3+ Urine Mucus 0 SEEN Urine Test Negative Patient potassium is 3.3, chloride 112. Patient has positive nitrite, leuk esterase positive, bacteria positive. Patient is refusing any other additional treatment in the ER, urine culture is pending, I will call patient in the prescription For urinary tract infection to help her despite her leaving AGAINST MEDICAL ADVICE secondary to help prevent bounce back ER return and help treat her symptoms accordingly. Discharge Plan Triage Chief Complaint: Abd Pain ED Provider: Tahir Kiran Dx/Rx/DC Orders Instructions: AMA, Urinary Tract Infections in Men, ED Gastritis (Adult), ED Marijuana Abuse, ED Vomiting (Adult) Prescriptions: New cephalexin 500 mg capsule 500 mg PO Q12 Qty: 14 0RF No Action dicyclomine 10 mg capsule 20 mg PO TIDAC Qty: 20 0RF promethazine [Promethegan] 25 mg suppository 25 mg RECTAL Q6H PRN PRN (Reason: Nausea) Qty: 6 0RF promethazine 25 mg tablet 25 mg PO Q6H PRN (Reason: nausea and vomiting) Ibsrela 50 mg tablet 50 mg PO BID Patient Comments: TAKE 1 TABLET BY MOUTH TWICE A DAY IMMEDIATELY BEFORE MEALS sucralfate 1 gram tablet 1 g PO TID Patient Comments: take 1 tablet by mouth three times a day pantoprazole 40 mg tablet,delayed release (DR/EC) 40 mg PO Q12H Patient Comments: take 1 tablet by mouth twice a day TAKE ON EMPTY STOMACH AT LEAST 30 MINUTES BEFORE EATING ondansetron 8 mg tablet,disintegrating 8 mg PO Q8H omeprazole 20 mg capsule,delayed release(DR/EC) 20 mg PO Q8H Patient Comments: take 1 capsule by mouth every morning and every evening before meals dicyclomine 20 mg tablet 20 mg PO TID Patient Comments: take 1 tablet by mouth three times a day if needed for abdominal pain promethazine 25 mg suppository 25 mg [place] Q6H PRN (Reason: nausea and vomiting) Qty: 12 0RF oxycodone-acetaminophen [Percocet] 5-325 mg tablet 1 tab PO Q8H PRN (Reason: pain) 3 Days Qty: 8 0RF ondansetron 4 mg tablet,disintegrating 4 mg PO Q8H PRN PRN (Reason: Nausea) Qty: 10 0RF dicyclomine 10 mg capsule 20 mg PO TIDAC Qty: 20 0RF promethazine 25 mg tablet 25 mg PO Q6H PRN PRN (Reason: Nausea) Qty: 15 0RF Primary Care Provider: Antony Trevino Referrals: Petrilla,Antony, DO [Primary Care Provider] - Activity Restrictions/Additional Instructions: Patient is leaving against medical vice, did not want a wait for any additional medication, prescriptions, or her discharge papers. Print Language: Mozambican Disposition Disposition: Against Medical Advice Discharge Date/Time: 08/06/24 11:17
[2024-08-06 09:38] LABS: Color, Urine Yellow (Yellow); Glucose, Dipstick Normal (Normal); Ketone-Dipstick 5 mg/dl (Negative); Leukocyte Esterase-Dipstick 25 /ul (Negative); Nitrite-Dipstick Positive (Negative); Occult Blood-Urine 250 /ul (Negative); Protein-Dipstick 30 mg/dl (Negative); Urine Bilirubin Dipstick Negative (Negative); Urine Clarity Sl. Cloudy (Clear); Urine Urobilinogen Normal (Normal)
[2024-08-06 09:39] LABS: Absolute Lymphocyte Count 2.41 X10^3/uL (0.83-4.51); Absolute Neutrophil Count 6.9 X10^3/uL (2.0-7.7); Basophil# 0.06 X10^3/uL; Basophil% 0.6 % (0-1); Eosinophil# 0.05 X10^3/uL; Eosinophils% 0.5 % (0-5); Hematocrit 34.4 % (37-47); Hemoglobin 11.2 g/dL (12.0-15.0); Lymphocyte # 2.41 X10^3/ul (0.83-4.51); Lymphocyte % 24.3 % (19-41); Mean Corp Hgb Conc 32.6 g/dL (32-36); Mean Corpuscular Hgb 27.6 pg (27.0-32.0); Mean Corpuscular Volume 84.7 fL (81-99); Mean Platelet Vol. 9.8 fl (6.2-12.0); Monocyte# 0.44 X10^3/uL; Monocyte% 4.4 % (0-10); NRBC Flagged by Analyzer 0 % (0-5); Neutrophil # 6.89 X10^3/uL (2.7-7.7); Neutrophil % 69.7 % (47-70); Platelet Count 289 K/mm3 (150-450); RBC Distribution Width CV 13.3 % (11.6-14.6); RBC Distribution Width SD 41.6 fl (35.1-43.9); Red Blood Count 4.06 M/mm3 (4.2-5.4); White Blood Count 9.9 K/mm3 (4.4-11.0)
[2024-08-06 09:47] LABS: Bacteria 3+ /hpf (None Seen); Red Blood Cells-Urine 0-5 SEEN /hpf (0-5); Squamous Epithelial Cells - UA 0-5 SEEN /hpf (5-10); White Blood Cells 0-5 SEEN /hpf (0-5)
[2024-08-06 09:48] LABS: Internal QC Validated? YES +Cl - CLEAR BKGD; Pregnancy, Urine Negative Negative
[2024-08-06 09:51] LABS: ALB/GLOB Ratio 1.4 RATIO (0.9-2.4); AST(SGOT) 15 U/L (15-37); Alanine Aminotransfer ALT/SGPT 20 U/L (13-56); Albumin, Serum 4.2 g/dL (3.2-5.0); Alkaline Phosphatase 50 U/L (45-117); Anion Gap 7 (5-15); BUN 22 mg/dL (7-18); BUN/Creat Ratio 22.1 RATIO (10-20); Calcium,Total 9.1 mg/dL (8.5-10.1); Chloride 112 mmol/L (98-107); EST Glomerular Filtration Rate 70 mL/min (>60); Est Glom Filt Rate - Afr Amer 85 mL/min (>60); Estimated Creatinine Clearance 68.67 ml/min; Glucose 130 mg/dL (74-106); Lipase 54 U/L (13-75); Potassium 3.3 mmol/L (3.5-5.1); Protein, Total 7.2 g/dL (6.4-8.2); Sodium Level 142 mmol/L (136-145)
[2024-08-06 10:39] VITALS: BP 125/120; RESP 98; O2SAT 97
--- NOTE | 2024-08-06 11:15 | ED.RN ---
PATIENT REQUESTING TO LEAVE AMA. DR RAYMOND INFORMED. TARA PAPERWORK SIGNED
== END 2024-08-06 11:17 | disposition left against medical advice (07) ==
LOC: ED 09:46
PROVIDERS: Emergency Provider Emergency Medicine; PCP Family Medicine; Visit Provider Emergency Medicine
DX: K29.70 Gastritis, unspecified, without bleeding (principal); Z53.29 Procedure and treatment not carried out because of patient's decision for other reasons; F12.10 Cannabis abuse, uncomplicated; K21.9 Gastro-esophageal reflux disease without esophagitis; F17.290 Nicotine dependence, other tobacco product, uncomplicated; Z79.899 Other long term (current) drug therapy
CPT/HCPCS: 80053; 81001; 81025; 83690; 85025; 96365; 96372; 96375; 99283; A4216; J2405; J3490